=== PATIENT | male | born 1990 | race Caucasian/White ===

== ENCOUNTER 2020-11-28 08:42 | Inpatient (IN) ==
[2020-11-28] MEDS ORDERED: SODIUM CHLORIDE 0.9% 1000ML 1,000 ML IV STA (09:12)
[2020-11-28] MEDS ORDERED: ONDANSETRON INJ 2 MG/ML 2 ML VIAL IV STA (09:12)
[2020-11-28] MEDS: MoRPHine SULFATE 4 MG/ML 1 ML CARP\\VIAL IV PRN ×4 (09:21→12:19)
[2020-11-28 09:22] LABS: Basophils # (auto) 0.02 K/uL (0-0.2); Basophils % (auto) 0.2 %; Eosinophils # (auto) 0.13 K/uL (0-0.5); Hematocrit (blood only) 42.8 % (42-52); Hemoglobin 14.7 g/dL (14.0-18.0); Immature Granulocytes # (auto) 0.02 K/uL (0.00-0.02); Immature Granulocytes % (auto) 0.2 %; Lymphocytes # (auto) 1.66 K/uL (1.2-3.4); Lymphocytes % (auto) 13.1 %; Mean Corpuscular Hemoglobin 28.9 pg (25-34); Mean Corpuscular Hgb Conc 34.3 g/dL (32-36); Mean Corpuscular Volume 84.3 fL (80-100); Mean Platelet Volume 8.4 fL (7.4-10.4); Monocytes # (auto) 1.14 K/uL (0.11-0.59); Neutrophils # (auto) 9.67 K/uL (1.4-6.5); Neutrophils % (auto) 76.5 %; Platelet Count 245 K/uL (130-400); RDW Coefficient of Variation 12.4 % (11.5-14.5); RDW Standard Deviation 38.5 fL (36.4-46.3); Red Blood Count 5.08 M/uL (4.7-6.1); White Blood Count 12.64 K/uL (4.8-10.8)
[2020-11-28] MEDS ORDERED: OPTIRAY 320 125ml IV ONE (09:37)
[2020-11-28 09:39] LABS: Alanine Aminotransferase 27 U/L (12-78); Albumin Level 3.8 gm/dl (3.4-5.0); Aspartate Aminotransferase 8 U/L (15-37); BUN Creatinine Ratio 14.3 (10-20); Blood Urea Nitrogen 16 mg/dl (7-18); Calcium 9.6 mg/dl (8.5-10.1); Carbon Dioxide 33 mmol/L (21-32); Chloride 100 mmol/L (98-107); Creatinine Clr Calc Pharmacy 104.9 ml/min; Est GFR (Non-African American) 90.6; Glucose 111 mg/dl (70-99); Lipase 140 U/L (73-393); Potassium 4.6 mmol/L (3.5-5.1); Sodium 135 mmol/L (136-145)
[2020-11-28 09:41] LABS: D Dimer 2400 ug/L FEU (0-500); INR 0.9 (0.9-1.1); Partial Thromboplastin Time 26.4 Seconds (21.0-31.0); Prothrombin Time 9.6 Seconds (9.0-12.0)
[2020-11-28 09:44] LABS: Albumin Globulin Ratio 0.9 (0.9-2); Alkaline Phosphatase 53 U/L (45-117); Bilirubin,Total 0.3 mg/dl (0.2-1); Total Protein 7.8 gm/dl (6.4-8.2); Troponin I < 0.015 ng/ml (0-0.045)
--- NOTE | 2020-11-28 09:59 | Emergency Department Note ---
Impression & Plan Pulmonary embolism, DVT (deep venous thrombosis), Chest pain ED Provider Note NAME: FRANKO RUIZ AGE: 30 SEX: M : 1990 ARRIVES VIA: Walk-In INFORMANT: Patient, ED PROVIDER(S): Russel Weber DO CHIEF COMPLAINT: Chest pain HPI: The patient is a 30-year-old male who presented to the emergency department for an evaluation of left-sided chest pain. The patient describes pain in his left upper quadrant of his abdomen that goes into his chest and into his left shoulder. He denies any recent trauma. He has had no nausea or vomiting. He states the pain is worsened with taking a deep breath and he feels as though he is limited with his breathing because of this. He denies having any history of venous thromboembolic disease. He does not take any blood thinners. He has not been seen by provider for the symptoms. He states this pain began only over the last 1 to 2 days. He states the pain is moderate to severe. He states the pain is mildly improved with remaining still and not moving. He has had no diarrhea or hematemesis. ROS: See above HPI for pertinent positives & negatives. A total of 10 systems reviewed and were otherwise negative. PAST MEDICAL HISTORY: See Below PAST SURGICAL HISTORY: See Below FAMILY HISTORY: See Below SOCIAL HISTORY: See Below HOME MEDICATIONS: See Below ALLERGIES: See Below VITALS: See Below PHYSICAL EXAMINATION: GENERAL: The patient is awake and alert. The patient is very anxious appearing and appears to be in significant pain. EYES: The conjunctivae are clear. The pupils are round and reactive. EARS, NOSE, MOUTH AND THROAT: The nose is without any evidence of any deformity. Mucous membranes are moist. Tongue is midline. NECK: The neck is nontender and supple. RESPIRATORY: Normal respiratory effort is noted there is no evidence of wheezing rhonchi or rales CARDIOVASCULAR: Splinting respirations were noted. There were rales at both bases. GASTROINTESTINAL: The abdomen is soft and nondistended. There is significant left upper quadrant tenderness to palpation. MUSCULOSKELETAL/EXTREMITIES: There is no evidence of gross deformity full range of motion is noted in the hips and shoulders. SKIN: There is no obvious evidence of any rash. There are no petechiae, pallor or cyanosis noted. NEUROLOGIC: Patient is awake alert and oriented x3. MEDICAL DECISION MAKING: The patient is a 30-year-old male who presented to the emergency department for an evaluation of left-sided chest pain. The patient had left-sided chest pain and left upper quadrant abdominal pain. His abdominal pain was very severe and was reproducible on physical exam. His initial presentation appeared to be consistent with intra-abdominal pathology however given his elevated D-dimer radiographs of the chest were also obtained. I discussed the patient's laboratory and radiographic studies with him. He was treated with IV fluids and IV pain medication in the emergency department. He was also started on IV hep mainor when radiographic studies revealed signs of pulmonary embolism with DVT. He was found to have some pleural effusion on the left which may explain the patient's pain on that side and may be consistent with a pulmonary infarct. I discussed the patient's condition with the on-call [facility] hospitalist group. They have agreed to evaluate the patient in the emergency department for further management and disposition. Once I was explaining the patient's diagnosis with him he does state that his father also has a history of venous thromboembolic disease but does not have a definite diagnosis for why. Triage Nursing notes reviewed. Prior medical records reviewed Vital Signs: reviewed and remarkable for elevated blood pressure. Differential diagnosis: Cardiac ischemia, aortic dissection, pulmonary embolism, pneumothorax, pneumonia, pericarditis, myocarditis, esophageal rupture, GERD, cholecystitis, pancreatitis, musculoskeletal, as well as other pathologies. ER treatment provided: See below Diagnostics interpreted by me: ECG: EKG was obtained in the emergency department. My interpretation is normal sinus rhythm at 85 bpm. There is no ectopy. There was no acute ST segment abnormalities noted. This was compared to a tracing from May 112013. No significant changes were noted. Cardiac Monitoring: An order was placed for continuous cardiac monitoring. The monitor shows a rate of 89 bpm with sinus rhythm. Laboratory studies: As stated above and show below. Imaging studies: See below Consultation(s): I discussed this case with Dr. Leyva who [facility] ED COURSE: Procedures: none PDMP:reviewed and no issues Critical Care: I have personally spent greater than 55 minutes of critical care time in the direct management of this patient. This includes bedside care, interpretation of diagnostic studies, and testing, discussion with consultants, patient, and family members, and other required patient management activities. This 55 minutes is in excess of all separately billable procedures. Past Med/Surg History Medical History (Updated 11/28/20 @ 11:56 by Russel Weber DO) No significant medical problems Surgical History No history of previous surgery Family History (Updated 11/28/20 @ 11:28 by DREA Chou) Father Clotting disorder Unknown work up, father with multiple PE and DVT on chronic anticoagulation - required a IVC filter at one time, but has since been removed Coronary heart disease Hypertension Pulmonary embolism Deep vein thrombosis Mother Hypertension Social History Smoking Status: Never smoker Tobacco Type: Cigarettes Hx Alcohol Use: No Hx Substance Use: No Preferred Language: Jordanian Communication Ability: Effective Head Transfer Clerk Required: No Beliefs That Will Affect Care: None Current Living Situation: Alone Other Information That Helps Us Care for You: No Feels Safe at Home: Yes Allergies Allergies Allergy/AdvReac Type Severity Reaction Status Date / Time No Known Allergies Allergy Unknown Verified 04/05/19 21:52 Home Meds Home Medications Medication Instructions Recorded Confirmed acetaminophen [Tylenol Extra 1,000 mg PO BID PRN 04/05/19 04/05/19 Strength] ibuprofen 800 mg PO BID PRN 04/05/19 04/05/19 Results & Data (ED) Vital Signs Vital Signs - 24 hr 11/28/20 08:47 11/28/20 09:10 11/28/20 09:12 Temperature 36.8 C Temperature Source Temporal Artery Scan Pulse Rate 92 H Pulse Rate [Left Apical] 85 Pulse Rhythm Pulse Rhythm [Left Apical] Regular Pulse Strength [Left Apical] Normal Respiratory Rate 24 28 H Respiratory Effort / Characteristics Spontaneous Non-Labored Spontaneous Labored Respiratory Depth Shallow Normal Respiratory Pattern Regular Blood Pressure 121/88 Blood Pressure [Right Arm] 160/84 H Blood Pressure Mean 99 Blood Pressure Mean [Right Arm] 109 Blood Pressure Position Sitting Blood Pressure Position [Right Arm] Lying Pulse Oximetry 99 100 Oxygen Delivery Method Room Air Room Air Sepsis Recent Fever Within 48 Hours No Sepsis New/Unexplained Change in Mental Status N/A Sepsis Action Taken by Nursing No Action Required 11/28/20 09:19 11/28/20 10:09 Temperature Temperature Source Pulse Rate 86 Pulse Rate [Left Apical] 95 H Pulse Rhythm Regular Pulse Rhythm [Left Apical] Regular Pulse Strength [Left Apical] Normal Respiratory Rate 27 H 28 H Respiratory Effort / Characteristics Non-Labored Spontaneous Respiratory Depth Normal Respiratory Pattern Regular Blood Pressure Blood Pressure [Right Arm] 155/95 H Blood Pressure Mean Blood Pressure Mean [Right Arm] 115 Blood Pressure Position Blood Pressure Position [Right Arm] Lying Pulse Oximetry 100 99 Oxygen Delivery Method Room Air Room Air Sepsis Recent Fever Within 48 Hours Sepsis New/Unexplained Change in Mental Status Sepsis Action Taken by Group Home Medications Current Medication List: was personally reviewed by me Laboratory Data Attestation: I reviewed the patient's lab results. Result diagrams: 11/28/20 09:10 11/28/20 09:10 Lab Results 11/28/20 11/28/20 11/28/20 Range/Units 09:10 09:10 09:10 WBC 12.64 H (4.8-10.8) K/uL RBC 5.08 (4.7-6.1) M/uL Hgb 14.7 (14.0-18.0) g/dL Hct 42.8 (42-52) % MCV 84.3 (80-100) fL MCH 28.9 (25-34) pg MCHC 34.3 (32-36) g/dL RDW Std Deviation 38.5 (36.4-46.3) fL RDW Coeff of Anna 12.4 (11.5-14.5) % Plt Count 245 (130-400) K/uL MPV 8.4 (7.4-10.4) fL Immature Gran % (Auto) 0.2 % Neut % (Auto) 76.5 % Lymph % (Auto) 13.1 % [place] % (Auto) 9.0 % Eos % (Auto) 1.0 % Baso % (Auto) 0.2 % Neut # (Auto) 9.67 H (1.4-6.5) K/uL Lymph # (Auto) 1.66 (1.2-3.4) K/uL [place] # (Auto) 1.14 H (0.11-0.59) K/uL Eos # (Auto) 0.13 (0-0.5) K/uL Baso # (Auto) 0.02 (0-0.2) K/uL Immature Gran # (Auto) 0.02 (0.00-0.02) K/uL ESR (0-14) mm/hr PT (9.0-12.0) Seconds INR (0.9-1.1) APTT (21.0-31.0) Seconds PTT Ratio Fibrinogen Cancelled D-Dimer 2400 H* (0-500) ug/L FEU Sodium 135 L (136-145) mmol/L Potassium 4.6 (3.5-5.1) mmol/L Chloride 100 (98-107) mmol/L Carbon Dioxide 33 H (21-32) mmol/L Anion Gap 2.0 L (3-11) BUN 16 (7-18) mg/dl Creatinine 1.09 (0.6-1.4) mg/dl Est Cr Clr Drug Dosing 104.9 ml/min Est GFR ( Amer) 105.0 Est GFR (Non-Af Amer) 90.6 BUN/Creatinine Ratio 14.3 (10-20) Glucose 111 H (70-99) mg/dl Calcium 9.6 (8.5-10.1) mg/dl Total Bilirubin 0.3 (0.2-1) mg/dl AST 8 L (15-37) U/L ALT 27 (12-78) U/L Alkaline Phosphatase 53 (45-117) U/L Troponin I < 0.015 (0-0.045) ng/ml C-Reactive Protein (0-0.29) mg/dl NT-Pro-B Natriuret Pep (0-450) pg/ml Total Protein 7.8 (6.4-8.2) gm/dl Albumin 3.8 (3.4-5.0) gm/dl Globulin 4.0 (2.5-4.0) gm/dl Albumin/Globulin Ratio 0.9 (0.9-2) Lipase 140 (73-393) U/L Procalcitonin (0-0.5) ng/ml COVID-19 Eval Order Monoscreen (Negative) SARS-CoV-2, RNA, NAAT (NEGATIVE) 11/28/20 11/28/20 11/28/20 Range/Units 09:10 09:10 09:36 WBC (4.8-10.8) K/uL RBC (4.7-6.1) M/uL Hgb (14.0-18.0) g/dL Hct (42-52) % MCV (80-100) fL MCH (25-34) pg MCHC (32-36) g/dL RDW Std Deviation (36.4-46.3) fL RDW Coeff of Anna (11.5-14.5) % Plt Count (130-400) K/uL MPV (7.4-10.4) fL Immature Gran % (Auto) % Neut % (Auto) % Lymph % (Auto) % [place] % (Auto) % Eos % (Auto) % Baso % (Auto) % Neut # (Auto) (1.4-6.5) K/uL Lymph # (Auto) (1.2-3.4) K/uL [place] # (Auto) (0.11-0.59) K/uL Eos # (Auto) (0-0.5) K/uL Baso # (Auto) (0-0.2) K/uL Immature Gran # (Auto) (0.00-0.02) K/uL ESR 21 H (0-14) mm/hr PT 9.6 (9.0-12.0) Seconds INR 0.9 (0.9-1.1) APTT 26.4 (21.0-31.0) Seconds PTT Ratio 1.0 Fibrinogen 431 H D-Dimer (0-500) ug/L FEU Sodium (136-145) mmol/L Potassium (3.5-5.1) mmol/L Chloride (98-107) mmol/L Carbon Dioxide (21-32) mmol/L Anion Gap (3-11) BUN (7-18) mg/dl Creatinine (0.6-1.4) mg/dl Est Cr Clr Drug Dosing ml/min Est GFR ( Amer) Est GFR (Non-Af Amer) BUN/Creatinine Ratio (10-20) Glucose (70-99) mg/dl Calcium (8.5-10.1) mg/dl Total Bilirubin (0.2-1) mg/dl AST (15-37) U/L ALT (12-78) U/L Alkaline Phosphatase (45-117) U/L Troponin I (0-0.045) ng/ml C-Reactive Protein (0-0.29) mg/dl NT-Pro-B Natriuret Pep (0-450) pg/ml Total Protein (6.4-8.2) gm/dl Albumin (3.4-5.0) gm/dl Globulin (2.5-4.0) gm/dl Albumin/Globulin Ratio (0.9-2) Lipase (73-393) U/L Procalcitonin (0-0.5) ng/ml COVID-19 Eval Order Monoscreen Negative (Negative) SARS-CoV-2, RNA, NAAT (NEGATIVE) 11/28/20 11/28/20 11/28/20 Range/Units 09:36 10:00 10:00 WBC (4.8-10.8) K/uL RBC (4.7-6.1) M/uL Hgb (14.0-18.0) g/dL Hct (42-52) % MCV (80-100) fL MCH (25-34) pg MCHC (32-36) g/dL RDW Std Deviation (36.4-46.3) fL RDW Coeff of Anna (11.5-14.5) % Plt Count (130-400) K/uL MPV (7.4-10.4) fL Immature Gran % (Auto) % Neut % (Auto) % Lymph % (Auto) % [place] % (Auto) % Eos % (Auto) % Baso % (Auto) % Neut # (Auto) (1.4-6.5) K/uL Lymph # (Auto) (1.2-3.4) K/uL [place] # (Auto) (0.11-0.59) K/uL Eos # (Auto) (0-0.5) K/uL Baso # (Auto) (0-0.2) K/uL Immature Gran # (Auto) (0.00-0.02) K/uL ESR (0-14) mm/hr PT (9.0-12.0) Seconds INR (0.9-1.1) APTT (21.0-31.0) Seconds PTT Ratio Fibrinogen D-Dimer (0-500) ug/L FEU Sodium (136-145) mmol/L Potassium (3.5-5.1) mmol/L Chloride (98-107) mmol/L Carbon Dioxide (21-32) mmol/L Anion Gap (3-11) BUN (7-18) mg/dl Creatinine (0.6-1.4) mg/dl Est Cr Clr Drug Dosing ml/min Est GFR ( Amer) Est GFR (Non-Af Amer) BUN/Creatinine Ratio (10-20) Glucose (70-99) mg/dl Calcium (8.5-10.1) mg/dl Total Bilirubin (0.2-1) mg/dl AST (15-37) U/L ALT (12-78) U/L Alkaline Phosphatase (45-117) U/L Troponin I (0-0.045) ng/ml C-Reactive Protein (0-0.29) mg/dl NT-Pro-B Natriuret Pep (0-450) pg/ml Total Protein (6.4-8.2) gm/dl Albumin (3.4-5.0) gm/dl Globulin (2.5-4.0) gm/dl Albumin/Globulin Ratio (0.9-2) Lipase (73-393) U/L Procalcitonin < 0.05 (0-0.5) ng/ml COVID-19 Eval [facility] (Negative) SARS-CoV-2, RNA, NAAT NEGATIVE (NEGATIVE) 11/28/20 Range/Units 10:40 WBC (4.8-10.8) K/uL RBC (4.7-6.1) M/uL Hgb (14.0-18.0) g/dL Hct (42-52) % MCV (80-100) fL MCH (25-34) pg MCHC (32-36) g/dL RDW Std Deviation (36.4-46.3) fL RDW Coeff of Anna (11.5-14.5) % Plt Count (130-400) K/uL MPV (7.4-10.4) fL Immature Gran % (Auto) % Neut % (Auto) % Lymph % (Auto) % [place] % (Auto) % Eos % (Auto) % Baso % (Auto) % Neut # (Auto) (1.4-6.5) K/uL Lymph # (Auto) (1.2-3.4) K/uL [place] # (Auto) (0.11-0.59) K/uL Eos # (Auto) (0-0.5) K/uL Baso # (Auto) (0-0.2) K/uL Immature Gran # (Auto) (0.00-0.02) K/uL ESR (0-14) mm/hr PT (9.0-12.0) Seconds INR (0.9-1.1) APTT (21.0-31.0) Seconds PTT Ratio Fibrinogen D-Dimer (0-500) ug/L FEU Sodium (136-145) mmol/L Potassium (3.5-5.1) mmol/L Chloride (98-107) mmol/L Carbon Dioxide (21-32) mmol/L Anion Gap (3-11) BUN (7-18) mg/dl Creatinine (0.6-1.4) mg/dl Est Cr Clr Drug Dosing ml/min Est GFR ( Amer) Est GFR (Non-Af Amer) BUN/Creatinine Ratio (10-20) Glucose (70-99) mg/dl Calcium (8.5-10.1) mg/dl Total Bilirubin (0.2-1) mg/dl AST (15-37) U/L ALT (12-78) U/L Alkaline Phosphatase (45-117) U/L Troponin I (0-0.045) ng/ml C-Reactive Protein 2.06 H (0-0.29) mg/dl NT-Pro-B Natriuret Pep 6 (0-450) pg/ml Total Protein (6.4-8.2) gm/dl Albumin (3.4-5.0) gm/dl Globulin (2.5-4.0) gm/dl Albumin/Globulin Ratio (0.9-2) Lipase (73-393) U/L Procalcitonin (0-0.5) ng/ml COVID-19 Eval Order Monoscreen (Negative) SARS-CoV-2, RNA, NAAT (NEGATIVE) Administered Medications Heparin Sodium/Dextrose (Heparin Sodium/Dextrose) 25,000 units in 500 mls @ 27 mls/hr IV .[id number] [facility]; Protocol Stop: 12/28/20 10:14 Last Admin: 11/28/20 10:51 Dose: 27 units/hr, 0.5 mls/hr Documented by: [id number] Cosigned by: [id number] Morphine Sulfate (Morphine Sulfate 4 Mg/Ml 1 Ml Carp\Vial) 4 mg IV Q15M PRN PRN Reason: Pain Stop: 12/12/20 09:11 Last Admin: 11/28/20 09:37 Dose: 4 mg Documented by: [id number] Admin: 11/28/20 09:21 Dose: 4 mg Documented by: [id number] Discontinued Medications Heparin Sodium (Porcine) (Heparin Sod (Porcine) 1000 Unit/Ml 10 Ml Vial) Confirm Administered Dose 10,000 units .ROUTE .STK-MED ONE Stop: 11/28/20 10:27 Last Admin: 11/28/20 10:52 Dose: 6,000 units Documented by: [id number] Cosigned by: [id number] Heparin Sodium/Dextrose (Heparin Iv Standard With Bolus) 1 ea IV NOW STA; Protocol Stop: 11/28/20 10:13 Last Admin: 11/28/20 11:44 Dose: Not Given Documented by: [id number] Hydromorphone HCl (Hydromorphone Inj 1 Mg/Ml Syringe) 1 mg IV Q30M PRN PRN Reason: Pain Stop: 12/12/20 10:11 Last Admin: 11/28/20 10:54 Dose: 1 mg Documented by: [id number] Admin: 11/28/20 10:16 Dose: 1 mg Documented by: [id number] Sodium Chloride (Nss 1000ml) 1,000 mls @ 999 mls/hr IV .Q1H1M STA Stop: 11/28/20 10:12 Last Infusion: 11/28/20 10:30 Dose: 0 mls/hr Documented by: [id number] Admin: 11/28/20 09:21 Dose: 999 mls/hr Documented by: [id number] Ioversol (Optiray 320 125ml) 120 ml IV ONCE ONE Stop: 11/28/20 09:38 Last Admin: 11/28/20 09:37 Dose: 120 ml Documented by: [id number] Ondansetron HCl (Ondansetron Inj 2 Mg/Ml 2 Ml Vial) 4 mg IV NOW STA Stop: 11/28/20 09:13 Last Admin: 11/28/20 09:21 Dose: 4 mg Documented by: [id number] Imaging Data Radiologist's Impression: Patient: FRANKO RUIZ Admit Date: 11/28/20 MR#: [id number] Address1: [address] [place] [address] Acct ID:[id number] Address2: Date: 1990 [facility] Zip: [place] [address] Age: 30 Location: ED Sex: M Room/Bed: Att Phy: Diagnosis: SOB Bettye Phy: PCP,NO Service Date: 11/28/20 [facility] Phy: Interpreting Phy: Reuben Duckworth MD Admit Phy: Ordering Phy: Russel Weber DO cc: ~ CT ANGIOGRAM OF THE CHEST; CT SCAN OF THE ABDOMEN AND PELVIS WITH IV CONTRAST CLINICAL HISTORY: Dyspnea. Atypical chest pain. Generalized abdominal pain. COMPARISON STUDY: Chest CT dated 04/05/2019. Abdominal CT dated 04/05/2019. TECHNIQUE: Following the IV administration of 120 of Optiray 320, CT angiogram of the chest is performed from the upper abdomen to the thoracic inlet utilizing the pulmonary embolus protocol. Images are reviewed in the axial, sagittal, coronal planes. 3-D MIPS images are created and assessed. Subsequently, CT scan of the abdomen and pelvis was performed from the lung bases to the proximal femora. Images are reviewed in the axial, sagittal, and coronal planes. IV contrast was administered without complication. A dose lowering technique was utilized adhering to the principles of ALARA. The examination is degraded by motion artifact. CT DOSE: 770.43 mGy.cm FINDINGS: CHEST: Thyroid: Imaged portions of the thyroid gland are normal in size and attenuation. Thoracic aorta: The thoracic aorta is normal in caliber and demonstrates standard 3-vessel arch anatomy. No dissection is seen. Pulmonary vasculature: The pulmonary trunk is normal in caliber. There are segmental and subsegmental pulmonary emboli within branches of the right upper, right middle, right lower, and left lower lobe pulmonary arteries. Heart: The heart is normal in size and configuration, and without pericardial effusion. Lungs and pleural spaces: There is a small left pleural effusion with left basilar consolidation. The right lung is clear. The trachea and central airways are patent. Mediastinum: There is no mediastinal lymphadenopathy. Liz: Clear. Axillae: There is no axillary lymphadenopathy. Bony thorax: No lytic or blastic lesions are identified. ABDOMEN AND PELVIS: Liver: The contrast-enhanced liver is normal in size, contour, and attenuation. There is no intrahepatic biliary ductal dilatation. The hepatic veins and portal veins are patent. Gallbladder: Unremarkable. Spleen: Normal in size and attenuation. Pancreas: Unremarkable. Adrenal glands: Unremarkable. Kidneys: The contrast enhanced kidneys are normal in size and without hydronephrosis. The kidneys enhance symmetrically. Abdominal vasculature: The abdominal aorta is normal in course and caliber. Deep venous thrombosis is identified in the right common femoral vein on image #511. There is no evidence of pelvic DVT. Stomach and bowel: There is a small hiatal hernia. No bowel obstruction is seen. Moderate constipation is observed The appendix is well-visualized and normal. Peritoneum: There is no intraperitoneal free air or abdominal ascites. There is a small fat-containing umbilical hernia. Lymphadenopathy: None. Pelvic viscera: The bladder is distended but otherwise normal in appearance. The prostate and seminal vesicles are normal as imaged. Trace free fluid is seen in the pelvis. Skeletal structures: No lytic or blastic lesions are seen. IMPRESSION: 1. Bilateral segmental and subsegmental pulmonary emboli as detailed above. 2. There is a small left pleural effusion with left basilar consolidation. This likely represents atelectasis and clinical correlation will be required. 3. Moderate constipation. 4. Trace free fluid in the pelvis is nonspecific and likely reactive. 5. Deep venous thrombosis is identified in the right common femoral vein. 6. Additional findings as above. ACT 112: Negative or not required by law. Electronically signed by: Reuben Duckworth M.D. 11/28/2020 10:06 AM Dictated: 11/28/20954 Transcribed: 11/28/20954 Discharge Plan Visit Data Chief Complaint: Shortness of Breath/Dyspnea Stated Complaint: SOB ED Provider: Russel Weber Discharge Problem: Pulmonary embolism, DVT (deep venous thrombosis), Chest pain Patient Disposition: Admitted As Inpatient Condition: Good Discharge Instructions Interventions: ED Discharge Assessment Last Done: 11/28/20 11:22 Discharge Problem: Pulmonary embolism Qualifiers: Pulmonary embolism type: unspecified Chronicity: acute Acute cor pulmonale presence: unspecified Qualified Code(s): I26.99 - Other pulmonary embolism without acute cor pulmonale DVT (deep venous thrombosis) Qualifiers: DVT location: lower extremity Affected thrombotic vein of extremity: femoral Chronicity: acute Laterality: right Qualified Code(s): I82.411 - Acute embolism and thrombosis of right femoral vein Chest pain Qualifiers: Chest pain type: unspecified Qualified Code(s): R07.9 - Chest pain, unspecified
--- NOTE | 2020-11-28 10:07 | CT Scan Report ---
CT ANGIOGRAM OF THE CHEST; CT SCAN OF THE ABDOMEN AND PELVIS WITH IV CONTRAST CLINICAL HISTORY: Dyspnea. Atypical chest pain. Generalized abdominal pain. COMPARISON STUDY: Chest CT dated 04/05/2019. Abdominal CT dated 04/05/2019. TECHNIQUE: Following the IV administration of 120 of Optiray 320, CT angiogram of the chest is perfor med from the upper abdomen to the thoracic inlet utilizing the pulmonary embolus protocol. Images are reviewed in the axial, sagittal, coronal planes. 3-D MIPS images are created and assessed. Subsequen tly, CT scan of the abdomen and pelvis was performed from the lung bases to the proximal femora. Imag es are reviewed in the axial, sagittal, and coronal planes. IV contrast was administered without comp lication. A dose lowering technique was utilized adhering to the principles of ALARA. The examination is degraded by motion artifact. CT DOSE: 770.43 mGy.cm FINDINGS: CHEST: Thyroid: Imaged portions of the thyroid gland are normal in size and attenuation. Thoracic aorta: The thoracic aorta is normal in caliber and demonstrates standard 3-vessel arch anato my. No dissection is seen. Pulmonary vasculature: The pulmonary trunk is normal in caliber. There are segmental and subsegmental pulmonary emboli within branches of the right upper, right middle, right lower, and left lower lobe pulmonary arteries. Heart: The heart is normal in size and configuration, and without pericardial effusion. Lungs and pleural spaces: There is a small left pleural effusion with left basilar consolidation. The right lung is clear. The trachea and central airways are patent. Mediastinum: There is no mediastinal lymphadenopathy. Liz: Clear. Axillae: There is no axillary lymphadenopathy. Bony thorax: No lytic or blastic lesions are identified. ABDOMEN AND PELVIS: Liver: The contrast-enhanced liver is normal in size, contour, and attenuation. There is no intrahepa tic biliary ductal dilatation. The hepatic veins and portal veins are patent. Gallbladder: Unremarkable. Spleen: Normal in size and attenuation. Pancreas: Unremarkable. Adrenal glands: Unremarkable. Kidneys: The contrast enhanced kidneys are normal in size and without hydronephrosis. The kidneys enh ance symmetrically. Abdominal vasculature: The abdominal aorta is normal in course and caliber. Deep venous thrombosis is identified in the right common femoral vein on image #511. There is no evidence of pelvic DVT. Stomach and bowel: There is a small hiatal hernia. No bowel obstruction is seen. Moderate constipatio n is observed The appendix is well-visualized and normal. Peritoneum: There is no intraperitoneal free air or abdominal ascites. There is a small fat-containin g umbilical hernia. Lymphadenopathy: None. Pelvic viscera: The bladder is distended but otherwise normal in appearance. The prostate and seminal vesicles are normal as imaged. Trace free fluid is seen in the pelvis. Skeletal structures: No lytic or blastic lesions are seen. IMPRESSION: 1. Bilateral segmental and subsegmental pulmonary emboli as detailed above. 2. There is a small left pleural effusion with left basilar consolidation. This likely represents ate lectasis and clinical correlation will be required. 3. Moderate constipation. 4. Trace free fluid in the pelvis is nonspecific and likely reactive. 5. Deep venous thrombosis is identified in the right common femoral vein. 6. Additional findings as above. ACT 112: Negative or not required by law. Electronically signed by: Reuben Duckworth M.D. 11/28/2020 10:06 AM
[2020-11-28] MEDS ORDERED: Heparin IV Adult Wt-Based Standard WITH Bolus Protocol IV STA (10:12)
[2020-11-28] MEDS: HYDROmorphone INJ 1 MG/ML SYRINGE IV PRN ×2 (10:16→10:54)
[2020-11-28] MEDS ORDERED: HEPARIN SOD (PORCINE) 1000 UNIT/ML ONE (10:26)
[2020-11-28] MEDS: HEPARIN SODIUM/DEXTROSE 25,000 UNITS/500 ML BAG IV SCH (10:51)
[2020-11-28] MEDS ORDERED: ONDANSETRON INJ 2 MG/ML 2 ML VIAL IV PRN (10:52)
[2020-11-28 11:18] LABS: Fibrinogen 431 mg/dl (184-400)
--- NOTE | 2020-11-28 11:20 | History & Physical Report ---
Date of Service November 28, 2020 Assessment & Plan (1) Pulmonary embolism: Bilateral segmental and subsegmental PE - Acute PE with PESI score 1 - no hemodynamic compromise, BNP, normal, no evidence of right heart strain on CT, and troponin normal - Heparin with bolus to therapeutic anticoagulation - Discussion with patient regarding his anticoagulation options. Case reviewed with Dr. Suárez regarding options while awaiting hypercoagulability work up and appreciate her review - Patient would like to discuss with his parents at this time before deciding. - Coumadin vs DOAC would be appropriate. If antiphospholipid or Lupus anticoagulant would lead more towards Coumadin as DOAC is contraindicated with those conditions -Dr. Suárez would like patient to follow-up with her in the anticoagulation clinic after discharge to review hypercoagulable work-up and discuss future richi g-term anticoagulation plans (2) Pleural effusion: Small left pleural effusion - likely with atelectasis and inflammation - no acute interventions at this time - follow (3) Pain: Patient's pain likely related to pulmonary infarction - Morphine 2 mg q2 hours- IMPORT DISPATCHER an option if needed - Tylenol - Toradol IV 15 mg q6prn - Lidoderm patch - Acute pain service consult if unable to control pain for nerve block evaluation (4) DVT (deep venous thrombosis): Right femoral DVT that does not extend to the pelvis - Bilateral lower extremity Doppler ordered - Devon pacheco for VTE and therapeutic heparin History of Present Illness Chief Complaint: Chest pain Primary Care Provider: NO PCP 30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 The patient comes in today for worsening of left rib and side pain and making it swan rder to breathe. 5 days ago the patient experienced hot flashes of warmth all over, associated with some light headedness and dizziness so he went to lay down, the pain on his left chest started a couple of days ago, but has gotten significantly worse today. The patient denies any leg pain or trauma or swelling of his legs and has not had this occur before. In the evaluation in the ER the patient had a CTA of the chest abdomen and pelvis performed where it was noted he has segmental and subsegmental pulmonary embolism in right upper, right middle, right lower, and left lower lobe pulmonary arteries. The left pulmonary embolism is associated with small left pleural effusion with basilar consolidation. He is also noted to have a right common femoral vein thrombosis which does not appear to extend in to the pelvis. The patient pain remains on the left side of his chest and left rib cage border, with significant splinting and guarding. The patient does have a significant family history of blood clots in his father who has had multiple pulmonary embolisms including saddle PE requiring mechanical ventilation with DVT requiring a filter at one time, that has since been removed. His father is on retirement anticoagulation per report and per Tonio his father's lab work was never shown to identify the reason. Tonio has one child son at home. Allergies Allergy/AdvReac Type Severity Reaction Status Date / Time No Known Allergies Allergy Unknown Verified 04/05/19 21:52 Home Medications Medication Instructions Recorded Confirmed Type acetaminophen [Tylenol Extra 1,000 mg PO BID PRN 04/05/19 04/05/19 History Strength] ibuprofen 800 mg PO BID PRN 04/05/19 04/05/19 History Past Med/Surg History Medical History (Updated 11/28/20 @ 11:56 by Russel Weber DO) No significant medical problems Surgical History No history of previous surgery Family History (Updated 11/28/20 @ 11:28 by DREA Chou) Father Clotting disorder Unknown work up, father with multiple PE and DVT on chronic anticoagu lation - required a IVC filter at one time, but has since been removed Coronary heart disease Hypertension Pulmonary embolism Deep vein thrombosis Mother Hypertension Social History Smoking Status: Never smoker Tobacco Type: Cigarettes Hx Alcohol Use: No Hx Substance Use: No Preferred Language: Estonian Communication Ability: Effective 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 College Or University Required: No Beliefs That Will Affect Care: None Current Living Situation: Alone Other Information That Helps Us Care for You: No Feels Safe at Home: Yes Review of Systems Review of Systems: REVIEW OF SYSTEMS: Constitutional: No fever, sweats or chills Eyes: No diplopia, no worsening or blurred vision ENT: normal hearing, no trouble swallowing Respiratory: (+) cough, dyspnea on exertion, left chest wall pain, negative sputum, dyspnea at rest Cardiovascular: No substernal chest pain, tightness or palpitations Abdomen: (+) LUQ pain, (-) nausea, vomiting, diarrhea or constipation Musculoskeletal: No joint pain, calf pain, swelling Neurologic: No weakness, numbness/tingling, or balance problems Psychiatric: No anxiety or depression Skin: No rash or itch Physical Exam Physical Exam: PHYSICAL EXAM: General: awake, alert, no apparent distress Head: Normocephalic, atraumatic ENT: PERRL, EOMI, no pharyngeal exudate, mucous membranes moist Neuro: AAO x 3, speech clear and appropriate, strength intact bilaterally 5/5, sensation intact and equal all extremities and dermatomes, no pronator drift Chest: equal rise and fall of the chest, no accessory muscle use, splinting of the left chest, decreased in bases secondary to hypoventilation, on room air, Cardiac: Regular rate and rhythm, telemetry reviewed, skin warm dry, cap refill <3 seconds, peripheral pulses +2 no JVD, no murmur, no edema GI: NABS x 4 quadrants, soft, nontender to palpation, no rebound, guarding secondary to LUQ rib pain, but not tender in the abdomen : Spontaneously voiding, no pain, no CVA tenderness, Extremities: Normal inspection, no peripheral edema or erythema, calfs nontender to palpation Psych: Normal mood and affect Skin: no rash or erythema Results & Data Results & Data ([facility]) Vital Signs (Past 12 Hours) Vital Signs Temp Pulse Pulse Resp BP BP Pulse Ox 11/28/20 11:00 82 18 151/96 H 95 11/28/20 10:09 95 H 28 H 155/95 H 99 11/28/20 09:19 86 27 H 100 11/28/20 09:10 85 28 H 160/84 H 100 11/28/20 08:47 36.8 C 92 H 24 121/88 99 Laboratory Results Abnormal lab results 11/28/20 11/28/20 11/28/20 Range/Units 09:10 09:10 09:10 WBC 12.64 H (4.8-10.8) K/uL Neut # (Auto) 9.67 H (1.4-6.5) K/uL [place] # (Auto) 1.14 H (0.11-0.59) K/uL ESR (0-14) mm/hr Fibrinogen (184-400) mg/dl D-Dimer 2400 H* (0-500) ug/L FEU Sodium 135 L (136-145) mmol/L Carbon Dioxide 33 H (21-32) mmol/L Anion Gap 2.0 L (3-11) Glucose 111 H (70-99) mg/dl AST 8 L (15-37) U/L C-Reactive Protein (0-0.29) mg/dl 11/28/20 11/28/20 11/28/20 Range/Units 09:10 09:36 10:40 WBC (4.8-10.8) K/uL Neut # (Auto) (1.4-6.5) K/uL [place] # (Auto) (0.11-0.59) K/uL ESR 21 H (0-14) mm/hr Fibrinogen 431 H (184-400) mg/dl D-Dimer (0-500) ug/L FEU Sodium (136-145) mmol/L Carbon Dioxide (21-32) mmol/L Anion Gap (3-11) Glucose (70-99) mg/dl AST (15-37) U/L C-Reactive Protein 2.06 H (0-0.29) mg/dl Diagnostic Findings CT ANGIOGRAM OF THE CHEST; CT SCAN OF THE ABDOMEN AND PELVIS WITH IV CONTRAST CLINICAL HISTORY: Dyspnea. Atypical chest pain. Generalized abdominal pain. COMPARISON STUDY: Chest CT dated 04/05/2019. Abdominal CT dated 04/05/2019. TECHNIQUE: Following the IV administration of 120 of Optiray 320, CT angiogram of the chest is performed from the upper abdomen to the thoracic inlet utilizing the pulmonary embolus protocol. Images are reviewed in the axial, sagittal, coronal planes. 3-D MIPS images are created and assessed. Subsequently, CT scan of the abdomen and pelvis was performed from the lung bases to the proximal femora. Images are reviewed in the axial, sagittal, and coronal planes. IV contrast was administered without complication. A dose lowering technique was utilized adhering to the principles of ALARA. The examination is degraded by motion artifact. CT DOSE: 770.43 mGy.cm FINDINGS: CHEST: Thyroid: Imaged portions of the thyroid gland are normal in size and attenuation. Thoracic aorta: The thoracic aorta is normal in caliber and demonstrates standard 3-vessel arch anatomy. No dissection is seen. Pulmonary vasculature: The pulmonary trunk is normal in caliber. There are segmental and subsegmental pulmonary emboli within branches of the right upper, right middle, right lower, and left lower lobe pulmonary arteries. Heart: The heart is normal in size and configuration, and without pericardial effusion. Lungs and pleural spaces: There is a small left pleural effusion with left basilar consolidation. The right lung is clear. The trachea and central airways are patent. Mediastinum: There is no mediastinal lymphadenopathy. Liz: Clear. Axillae: There is no axillary lymphadenopathy. Bony thorax: No lytic or blastic lesions are identified. ABDOMEN AND PELVIS: Liver: The contrast-enhanced liver is normal in size, contour, and attenuation. There is no intrahepatic biliary ductal dilatation. The hepatic veins and portal veins are patent. Gallbladder: Unremarkable. Spleen: Normal in size and attenuation. Pancreas: Unremarkable. Adrenal glands: Unremarkable. Kidneys: The contrast enhanced kidneys are normal in size and without hydronephrosis. The kidneys enhance symmetrically. Abdominal vasculature: The abdominal aorta is normal in course and caliber. Deep venous thrombosis is identified in the right common femoral vein on image #511. There is no evidence of pelvic DVT. Stomach and bowel: There is a small hiatal hernia. No bowel obstruction is seen. Moderate constipation is observed The appendix is well-visualized and normal. Peritoneum: There is no intraperitoneal free air or abdominal ascites. There is a small fat-containing umbilical hernia. Lymphadenopathy: None. Pelvic viscera: The bladder is distended but otherwise normal in appearance. The prostate and seminal vesicles are normal as imaged. Trace free fluid is seen in the pelvis. Skeletal structures: No lytic or blastic lesions are seen. IMPRESSION: 1. Bilateral segmental and subsegmental pulmonary emboli as detailed above. 2. There is a small left pleural effusion with left basilar consolidation. This likely represents atelectasis and clinical correlation will be required. 3. Moderate constipation. 4. Trace free fluid in the pelvis is nonspecific and likely reactive. 5. Deep venous thrombosis is identified in the right common femoral vein. 6. Additional findings as above. Medications Administered Heparin Sodium/Dextrose (Heparin Sodium/Dextrose) 25,000 units in 500 mls @ 27 mls/hr IV .[id number] [facility], [facility]; Protocol Stop: 12/28/20 10:14 Last Admin: 11/28/20 10:51 Dose: 27 units/hr, 0.5 mls/hr Documented by: [id number] Cosigned by: [id number] Morphine Sulfate (Morphine Sulfate 4 Mg/Ml 1 Ml Carp\Vial) 4 mg IV Q15M PRN PRN Reason: Pain Stop: 12/12/20 09:11 Last Admin: 11/28/20 09:37 Dose: 4 mg Documented by: [id number] Admin: 11/28/20 09:21 Dose: 4 mg Documented by: [id number] Discontinued Medications Heparin Sodium (Porcine) (Heparin Sod (Porcine) 1000 Unit/Ml 10 Ml Vial) Confirm Administered Dose 10,000 units .ROUTE .STK-MED ONE Stop: 11/28/20 10:27 Last Admin: 11/28/20 10:52 Dose: 6,000 units Documented by: [id number] Cosigned by: [id number] Heparin Sodium/Dextrose (Heparin Iv Standard With Bolus) 1 ea IV NOW STA; Protocol Stop: 11/28/20 10:13 Last Admin: 11/28/20 11:44 Dose: Not Given Documented by: [id number] Hydromorphone HCl (Hydromorphone Inj 1 Mg/Ml Syringe) 1 mg IV Q30M PRN PRN Reason: Pain Stop: 12/12/20 10:11 Last Admin: 11/28/20 10:54 Dose: 1 mg Documented by: [id number] Admin: 11/28/20 10:16 Dose: 1 mg Documented by: [id number] Sodium Chloride (Nss 1000ml) 1,000 mls @ 999 mls/hr IV .Q1H1M STA Stop: 11/28/20 10:12 Last Infusion: 11/28/20 10:30 Dose: 0 mls/hr Documented by: [id number] Admin: 11/28/20 09:21 Dose: 999 mls/hr Documented by: [id number] Ioversol (Optiray 320 125ml) 120 ml IV ONCE ONE Stop: 11/28/20 09:38 Last Admin: 11/28/20 09:37 Dose: 120 ml Documented by: [id number] Ondansetron HCl (Ondansetron Inj 2 Mg/Ml 2 Ml Vial) 4 mg IV NOW STA Stop: 11/28/20 09:13 Last Admin: 11/28/20 09:21 Dose: 4 mg Documented by: [id number] Additional Comments: Poor data quality, interpretation may be adversely affected Normal sinus rhythm Normal ECG Code Status & VTE Plan Code Status CODE: FULL VTE: TEDS HOSE and Therapeutic Anticoagulation VTE Prophylaxis Plan VTE Prophylaxis will be ordered: Yes Supervising Physician Co-Signing Physician Notes DREA Supervision note: I have personally seen and examined the patient and discussed and verified the martinez points of the history and physical along with the plan with DREA montes the following exceptions and/or additions: This patient is a 30-year-old healthy, active male with 5 days of at first feeling flushed and lightheaded followed by 2 days of progressively worsening severe left-sided chest and left upper quadrant abdominal pain. He denies fevers or chills, no nausea or vomiting. He has no history of bleeding or clotting in the past. He denies any lower extremity pain or swelling He was found to have bilateral segmental and subsegmental PEs and left lower lobe consolidation and small left pleural effusion as well as a right common femoral vein DVT seen on CT angiogram chest/abdomen/pelvis. Dopplers were pending of the lower extremities at the time of admission. In the ER, he was requiring large amounts of IV morphine and then IV Dilaudid to help control his pain but was still having severe pain causing splinting when I saw him. History and ROS reviewed as above most notably to include father with numerous DVT/PEs who suffered a saddle embolus while on Coumadin and is now on Lovenox. His hypercoagulable work-up reportedly has been negative in the past. Vitals reviewed Gen: AAOx3, in moderate distress secondary to pain and with tachypnea, moaning HEENT: Anicteric sclerae, EOMI CV: Mild tachycardia, regular rhythm no mgr nl S1S2 Pulm: Not able to take deep breaths, decreased breath sounds at the bases, no wheezes Abd: Abdomen tense from splinting, not able to get good examination Ext: No edema, no calf tenderness, 2+ DP pulses Skin: No rashes, warm/dry Neuro: Full strength throughout 30-year-old male here with family history of DVT/PE and hypercoagulable state, here with unprovoked acute DVT/PE and significant pleuritic chest pain, possible pulmonary infarct -Plan outlined as above Started on heparin. Discussed options for anticoagulation with patient but would favor IV heparin or Lovenox bridging to therapeutic Coumadin at this time until hypercoagulable work-up results are returned. Could place on DOAC, but these have not been studied as much in inherited hypercoagulable conditions. Pt wants to discuss options with his parents and let Hospitalists know Please schedule him follow-up with anticoagulation clinic after discharge-Dr. Suárez is aware of the case. Does not need thrombolysis as he has no significant swelling or pain lower extremities. Is hemodynamically stable. Pain control as above PG Care Time/CCT Total # of Minutes Spent Total Time Spent with Patient: Total time spent is greater than 50% in coordi nation of care (as documented) at patient's floor/unit and/or counseling patient: Coding Level of Care Code 51548 Initial Inpt Care Lvl 3 Diagnoses Pulmonary embolism I26.94 Pulmonary embolism type: multiple subsegmental (without acute cor pulmonale) Pleural effusion J90 Pain R52 DVT (deep venous thrombosis) I82.411 Affected thrombotic vein of extremity: femoral Chronicity: acute DVT location: lower extremity Laterality: right (1) DVT (deep venous thrombosis) Affected thrombotic vein of extremity: femoral Chronicity: acute DVT location: lower extremity Laterality: right Qualified Code(s): I82.411 - Acute embolism and thrombosis of right femoral vein (2) Pulmonary embolism Pulmonary embolism type: multiple subsegmental (without acute cor pulmonale) Qualified Code(s): I26.94 - Multiple subsegmental pulmonary emboli without acute cor pulmonale
[2020-11-28 11:23] LABS: C Reactive Protein 2.06 mg/dl (0-0.29)
[2020-11-28] MEDS ORDERED: ACETAMINOPHEN 500 MG TAB PO PRN (11:52)
[2020-11-28] MEDS: KETOROLAC TROMETHAMINE 15 MG/ML VIAL IV PRN ×2 (12:46→19:39)
--- NOTE | 2020-11-28 12:47 | Electrocardiogram Report ---
Test Reason : Blood Pressure : / mmHG Vent. Rate : 085 BPM Atrial Rate : 085 BPM P-R Int : 148 ms QRS Dur : 068 ms QT Int : 336 ms P-R-T Axes : 008 040 -04 degrees QTc Int : 399 ms Poor data quality, interpretation may be adversely affected Normal sinus rhythm Normal ECG When compared with ECG of 05-APR-2019 21:44, No significant change was found Confirmed by Russel Craig ([id number]) on 11/28/2020 12:46:41 PM Referred By: REFERRED SELF Confirmed By:Russel Craig
[2020-11-28] MEDS: LIDOCAINE 5% 1 PATCH TD SCH (13:01)
--- NOTE | 2020-11-28 13:55 | XRay Report ---
SINGLE VIEW CHEST CLINICAL HISTORY: Pleural effusion. Pulmonary embolus FINDINGS: An AP, portable, upright chest radiograph is compared to study dated 05/11/2014 and correlat ed with chest CT performed the same day 11/28/2020. The cardiomediastinal silhouette is unremarkable. There are low lung volumes with bibasilar atelectasis. No airspace consolidation or large pleural eff usion is identified. No pneumothorax is seen. The bony thorax is grossly intact. IMPRESSION: No large pleural effusion is identified. The small left pleural effusion seen by CT is to o small to visualize on this AP portable examination. ACT 112: Negative or not required by law. Electronically signed by: Reuben Duckworth M.D. 11/28/2020 1:53 PM
--- NOTE | 2020-11-28 15:49 | Ultrasound Report ---
ULTRASOUND BILATERAL LOWER EXTREMITY VENOUS CLINICAL HISTORY: Pulmonary emboli. COMPARISON STUDY: No priors. TECHNIQUE: Real-time, grayscale, and color Doppler sonography of the deep veins of the right and left lower extremity was performed from the inguinal crease to the calf. Compression and augmentation wer e utilized. FINDINGS: There is no sonographic evidence of deep venous thrombosis identified in the right or left lower extremity. The common femoral, superficial femoral, and popliteal veins are patent and normally compressible bilaterally. The greater saphenous vein and the profunda femoris vein at the junction w ith the common femoral vein are clear in both legs. The visualized calf veins are patent bilaterally. IMPRESSION: There is no sonographic evidence of deep venous thrombosis identified in the right or lef t lower extremity. ACT 112: Negative or not required by law. Electronically signed by: Reuben Duckworth M.D. 11/28/2020 3:47 PM
[2020-11-28 17:49] LABS: Partial Thromboplastin Ratio 1.8
[2020-11-28 19:16] LABS: iSTAT Creatinine 0.9 mg/dl (0.6-1.3); iSTAT Hemoglobin 14.6 g/dl (14.0-18.0); iSTAT Ionized Calcium 1.22 mmol/l (1.12-1.32); iSTAT Potassium 4.5 mmol/L (3.3-5.0)
[2020-11-28] MEDS: ACETAMINOPHEN 325 MG TAB PO PRN (19:38)
[2020-11-28] MEDS: DOCUSATE SODIUM 100 MG CAP PO SCH (19:39)
[2020-11-29] MEDS: MoRPHine SULFATE 4 MG/ML 1 ML CARP\\VIAL IV PRN ×5 (00:30→23:12)
[2020-11-29] MEDS: ACETAMINOPHEN 325 MG TAB PO PRN (02:59)
[2020-11-29] MEDS: KETOROLAC TROMETHAMINE 15 MG/ML VIAL IV PRN ×2 (03:00→09:28)
[2020-11-29] MEDS: HEPARIN SODIUM/DEXTROSE 25,000 UNITS/500 ML BAG IV SCH ×2 (04:30→23:11)
[2020-11-29 08:02] LABS: Basophils # (auto) 0.02 K/uL (0-0.2); Basophils % (auto) 0.1 %; Eosinophils # (auto) 0.05 K/uL (0-0.5); Eosinophils % (auto) 0.3 %; Hematocrit (blood only) 41.4 % (42-52); Immature Granulocytes # (auto) 0.03 K/uL (0.00-0.02); Immature Granulocytes % (auto) 0.2 %; Lymphocytes # (auto) 1.48 K/uL (1.2-3.4); Lymphocytes % (auto) 10.3 %; Mean Corpuscular Hemoglobin 28.5 pg (25-34); Mean Corpuscular Hgb Conc 33.8 g/dL (32-36); Mean Corpuscular Volume 84.3 fL (80-100); Mean Platelet Volume 8.8 fL (7.4-10.4); Monocytes # (auto) 1.51 K/uL (0.11-0.59); Monocytes % (auto) 10.5 %; Neutrophils # (auto) 11.33 K/uL (1.4-6.5); Neutrophils % (auto) 78.6 %; Platelet Count 203 K/uL (130-400); RDW Coefficient of Variation 12.8 % (11.5-14.5); RDW Standard Deviation 39.5 fL (36.4-46.3); Red Blood Count 4.91 M/uL (4.7-6.1); White Blood Count 14.42 K/uL (4.8-10.8)
[2020-11-29 08:24] LABS: Partial Thromboplastin Ratio 1.8; Prothrombin Time 10.5 Seconds (9.0-12.0)
[2020-11-29 08:34] LABS: Partial Thromboplastin Time 48.3 Seconds (21.0-31.0)
[2020-11-29] MEDS: LIDOCAINE 5% 1 PATCH TD SCH (09:23)
[2020-11-29] MEDS: DOCUSATE SODIUM 100 MG CAP PO SCH ×2 (09:25→19:50)
[2020-11-29 09:28] LABS: BUN Creatinine Ratio 12.4 (10-20); Calcium 9.6 mg/dl (8.5-10.1); Creatinine Clr Calc Pharmacy 101.9 ml/min; Est GFR (African American) 108.6; Est GFR (Non-African American) 93.7; Potassium 5.3 mmol/L (3.5-5.1)
[2020-11-29] MEDS: ACETAMINOPHEN 325 MG TAB PO SCH ×4 (11:40→23:11)
--- NOTE | 2020-11-29 13:27 | Medical Student Progress Note ---
Date of Service November 29, 2020 Assessment & Plan (1) Pulmonary embolism: Mr. 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 D-dimer 2400, fibrinogen 431, initial CARBIDE TOOL MAKER 2.06 and ESR 21. EKG showed NSR, CXR showed no large pleural effusion, and venous doppler found no sonographic evidence of DVT identified. Chest CTA found bilateral segmental and subsegmental pulmonary embolism, small left basilar consolidation likely atelectasis, moderate constipation, and DVT in the right common femoral vein. PE -Acute PE with PESI score 1, no recent travel or immobilization so considered an unprovoked PE. Has FHx of DVT/PE. -Hemodynamically stable with periods of hypertension, tachycardia, tachypnea, and Tmax 38.0. No evidence of right heart strain on CT and normal troponin. -Pain this morning 2/10 at rest and 10/10 with any movement. Able to walk to bathroom to urinate but no BM since Sunday and not able to breathe deeply due to pain. See below. -Continue heparin sodium/dextrose 1350 units/hr and received 10,000 units initial bolus in ED. -Will need indefinite anticoagulation due to PE recurrence risk. Discussed DOAC vs. warfarin with pt and he is amenable. Coag panel pending, and if antiphospholipid or lupus anticoagulant antibody positive then warfarin may be a better choice watermaster, otherwise DOAC likely the best choice. -Follow with Dr. Suárez in the anticoagulation clinic after discharge. FEN: PO fluids, monitor electrolytes, regular diet Code status: Full Code Disposition: Remain inpatient to control pain and continue anticoagulation with the goal of improved breathing and incentive spirometry prior to discharge. Pulmonary embolism type: multiple subsegmental (without acute cor pulmonale) Qualified Code(s): I26.94 - Multiple subsegmental pulmonary emboli without acute cor pulmonale (2) Pleural effusion: Small left pleural effusion seen on CT A/P, not large enough to be seen on CXR. Likely secondary to PE inflammation and atelectasis. No acute management indicated. (3) Pain: Pain still significant and likely secondary to PE. Pt 10/10 pain with any movement and it is resulting in splinting on exam. -Acetaminophen 650mg q4h and ketorolac 15 IV q6h switch from PRN to scheduled in order to better control pain. Continue scheduled lidocaine patches. - Continue morphine 4mg PRN. Pt pain appears somewhat better controlled this afternoon but if it worsens we will consider WATER AND GAS HELPER or acute pain service consult for potential nerve block evaluation. (4) DVT (deep venous thrombosis): CTA showed DVT in right common femoral vein. Doppler did not find evidence of DVT. -Continue heparin 1350 units/hr IV. Transition to likely DOAC prior to discharge re: indefinite anticoagulation. Affected thrombotic vein of extremity: femoral Chronicity: acute DVT location: lower extremity Laterality: right Qualified Code(s): I82.411 - Acute embolism and thrombosis of right femoral vein Admission and Anticipated Discharge Date Admission Date: November 28, 2020 Supervising Attestation I personally examined the patient and verified all martinez points of history and exam, discussed case, and agree with decision making with Victor Hugo Anguiano MS4 Feeling rather significant pain. Still hurts to take much deep breath. Does not seem to have overt dyspnea, however. Vitals noted, in general he is awake and alert does appear to be in discomfort. No respiratory distress but movement seems to cause him discomfort. HEENT normocephalic atraumatic mucous membranes moist, breathing unlabored no accessory muscle use good effort, lungs are clear although somewhat limited exam due to pain. No focal neuro deficits. Acute PE/what appears to be evolving pulmonary infarctfortunately from a PE standpoint he is relatively stable, however from a pain standpoint he is cer tainly very uncontrolled. Continue to titrate pain regimentoday scheduled Tylenol and Toradol keep morphine as needed, follow-up throughout the afternoonif pain is not doing better consider escalation to a WATER AND GAS HELPER, or consult with pain management for nerve block if this could be helpful. Continue anticoagulation. Given that this was an unprovoked event, most newer guidelines would suggest indefinite anticoagulation. Otherwise as above. Subjective Mr. 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 It worsened significantly on Sunday which led him to come to the ED. He states he tried NSAIDs for the pain and drank about a dozen gatorade bottles over the 48 hours prior to admission in order to try and stay hydrated. This morning he is feeling a fair amount of pain, 2/10 at rest and 10/10 with any movement. He says he is able to bear the pain when he needs to walk to the bathroom which he has done three times since admission, although it is painful. Otherwise he is keeping quite still. While I was talking to him a nurse came to put on his lidocaine patch and we had to stop the conversation for about two minutes since he was in so much pain from rolling over briefly to put on the patch. He was able to eat some pudding for breakfast and drink some water, but even that causes pain. He says he has not had a BM since Sunday, which he attributes to his muscles being so tight due to the pain. With regard to risk factors, he said he has no history of DVT/PE but his father has a clotting disorder and has been on anticoagulation for years. Pt states he has not travelled at all recently, and that he is a busy worker with no recently periods of immobilization. Review of Systems Review of Systems: All systems reviewed & are unremarkable except as noted in HPI & below Constitutional: + weakness (endorses generalized weakness over the past few days); no fever Respiratory: + pain on inspiration; no cough and no dyspnea Cardiovascular: + chest pain (L>R) and + lightheadedness; no dyspnea, no palpitations and no syncope Gastrointestinal: + abdominal pain, + nausea (mild, still able to eat) and + constipation; no heartburn, no vomiting, no dysphagia and no diarrhea/loose stools Genitourinary: no dysuria and no flank pain Musculoskeletal: no back pain Neurologic: no headache(s) and no confusion Physical Exam Constitutional: well developed, well nourished, + acute distress (mild acute distress at rest, laying in bed quite still) and cooperative; + uncomfortable ENMT: external ear and nose normal, oropharynx normal Respiratory: normal respiratory effort (decreased respiratory effort secondary to pain); no cough Auscultation: lungs clear to auscultation bilaterally; no rales, no rhonchi and no wheezes inspiratory splinting, chest tender to palpation L>R Cardiovascular: RRR, no murmur, no edema Heart Sounds: normal S1 and normal S2; no gallop, no murmur and no cardiac rub Chest (Breasts): Chest: normal inspection of chest Gastrointestinal (Abdomen): Inspection/Auscultation: abdomen normal to inspection and normal bowel sounds; abdomen not distended Percussion/Palpation: + abdomen tender (mildly tender to palpation, especially in LUQ), + guarding and + abdomen firm (abd muscles tensed) Musculoskeletal: Head/Neck/Chest: normocephalic and head atraumatic Skin: no rashes, warm and dry Psychiatric: A+Ox3, euthymic affect Results & Data ([facility]) Vital Signs (Past 12 Hours) Vital Signs Temp Pulse Pulse Resp BP BP Pulse Ox 11/29/20 11:39 38.0 C H 114 H 19 135/92 95 11/29/20 07:52 36.7 C 96 H 22 148/91 H 97 11/29/20 07:16 92 H 11/29/20 02:51 37.9 C H 102 H 21 143/92 H 94
[2020-11-29] MEDS: KETOROLAC TROMETHAMINE 15 MG/ML VIAL IV SCH ×2 (16:25→19:55)
--- NOTE | 2020-11-29 19:10 | Billing Data ---
Date of Service November 29, 2020 Coding Level of Care Code 57194 Subseq Hosp Care Lvl 3
[2020-11-30] MEDS: KETOROLAC TROMETHAMINE 15 MG/ML VIAL IV SCH ×4 (04:06→23:39)
[2020-11-30] MEDS: ACETAMINOPHEN 325 MG TAB PO SCH ×5 (04:06→19:02)
[2020-11-30] MEDS: MoRPHine SULFATE 4 MG/ML 1 ML CARP\\VIAL IV PRN ×6 (04:52→20:50)
[2020-11-30 06:13] LABS: Hematocrit (blood only) 39.5 % (42-52); Hemoglobin 13.3 g/dL (14.0-18.0); Mean Corpuscular Hemoglobin 28.7 pg (25-34); Mean Corpuscular Hgb Conc 33.7 g/dL (32-36); Mean Corpuscular Volume 85.1 fL (80-100); Platelet Count 197 K/uL (130-400); RDW Coefficient of Variation 12.6 % (11.5-14.5); RDW Standard Deviation 38.9 fL (36.4-46.3); Red Blood Count 4.64 M/uL (4.7-6.1); White Blood Count 25.88 K/uL (4.8-10.8)
[2020-11-30 06:29] LABS: Partial Thromboplastin Ratio 1.9
[2020-11-30 06:33] LABS: Partial Thromboplastin Time 48.8 Seconds (21.0-31.0)
[2020-11-30 06:35] LABS: Basophils # (auto) 0.01 K/uL (0-0.2); Immature Granulocytes # (auto) 0.35 K/uL (0.00-0.02); Immature Granulocytes % (auto) 1.4 %; Lymphocytes # (auto) 0.47 K/uL (1.2-3.4); Lymphocytes % (auto) 1.8 %; Monocytes # (auto) 1.84 K/uL (0.11-0.59); Monocytes % (auto) 7.1 %; Neutrophils # (auto) 23.21 K/uL (1.4-6.5); Neutrophils % (auto) 89.7 %
[2020-11-30 06:40] LABS: BUN Creatinine Ratio 10.7 (10-20); Calcium 8.8 mg/dl (8.5-10.1); Creatinine Clr Calc Pharmacy 92.3 ml/min; Est GFR (African American) 96.4; Est GFR (Non-African American) 83.2; Potassium 4.6 mmol/L (3.5-5.1)
[2020-11-30] MEDS: LIDOCAINE 5% 1 PATCH TD SCH (08:45)
[2020-11-30] MEDS: DOCUSATE SODIUM 100 MG CAP PO SCH ×2 (08:45→19:02)
--- NOTE | 2020-11-30 08:49 | XRay Report ---
XR chest 1V portable HISTORY: elevated white count COMPARISON: Chest 11/28/2020. Chest CTA 11/28/2020. FINDINGS: No pneumothorax. Increase in size in the small to moderate left pleural effusion. Left basi lar densities persist. The right lung is clear. The heart is normal in size. IMPRESSION: Increase in size in the small to moderate left pleural effusion. Left basilar densities persist. ACT 112: Negative or not required by law. Electronically signed by: Luis A Braun M.D. 11/30/2020 8:48 AM
[2020-11-30] MEDS ORDERED: VANCOMYCIN CONSULT ACTIVE PRN (09:52)
[2020-11-30 10:08] LABS: Appearance Urine Clear (Clear); Bacteria Urine Automated Negative (Negative); Bilirubin Urine Negative (Negative); Blood Urine Negative (Negative); Cast Urine Automated 0 /lpf (0-5); Color Urine Orange; Glucose Urine UA Negative (Negative); Ketones Urine Negative (Negative); Leukocyte Esterase Urine Negative (Negative); Nitrite Urine Negative (Negative); Protein Urine 1+ (Negative); RBC Urine Automated 0-4 /hpf (0-4); Urobilinogen Urine Negative (Negative)
[2020-11-30] MEDS ORDERED: VANCOMYCIN HCL 2,000 MG in SODIUM CHLORIDE 0.9% 500 ML IV ONE (10:30)
[2020-11-30] MEDS: CEFEPIME 2,000 MG in SYRINGE 0 ML IV SCH ×2 (10:30→18:05)
--- NOTE | 2020-11-30 13:19 | Medical Student Progress Note ---
Date of Service November 30, 2020 Assessment & Plan (1) Pulmonary embolism: Mr. 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 D-dimer 2400, fibrinogen 431, initial RESP THERAPIST 2.06 and ESR 21. EKG showed NSR, CXR showed no large pleural effusion, and venous doppler found no sonographic evidence of DVT identified. Chest CTA found bilateral segmental and subsegmental pulmonary embolism, small left basilar consolidation likely atelectasis, moderate constipation, and DVT in the right common femoral vein. PE -Acute PE with PESI score 1, no recent travel or immobilization so considered an unprovoked PE. Has FHx of DVT/PE. -Hemodynamically stable with periods of hypertension, tachycardia, tachypnea, and Tmax 38.2. No evidence of right heart strain on CT and normal troponin. -Pain today much improved per pt and exam. Abd muscles much less tensed today and able to take deeper breaths and move around without much discomfort. Given incentive spirometry. -Continue heparin sodium/dextrose 1350 units/hr and received 10,000 units initial bolus in ED. -Will need indefinite anticoagulation due to PE recurrence risk. Discussed outpatient DOAC vs. warfarin with pt and he is amenable. Coag panel pending, and if antiphospholipid or lupus anticoagulant antibody positive then warfarin may be a better choice manager terminal, otherwise DOAC likely the best choice. Start apixaban tonight. -Follow with Dr. Suárez in the anticoagulation clinic after discharge. FEN: PO fluids, monitor electrolytes, regular diet Code status: Full Code Disposition: Remain inpatient to provide antibiotics, monitor breathing and pain control, and recheck labs tomorrow re: new PNA. Pulmonary embolism type: multiple subsegmental (without acute cor pulmonale) Qualified Code(s): I26.94 - Multiple subsegmental pulmonary emboli without acute cor pulmonale (2) Pain: Pain with pain meds much improved today. Pt on scheduled acetaminophen, ketorolac, and lidocaine patches, with available PRN morphine 4mg which patient has been using some. Consider DATABASE CONSULTANT or nerve block evaluation if pain worsens but the current pain regimen is effective for now. (3) DVT (deep venous thrombosis): CTA showed DVT in right common femoral vein. Doppler did not find evidence of DVT. -Continue heparin 1350 units/hr IV. Transition to apixaban tonight re: indefinite anticoagulation. Affected thrombotic vein of extremity: femoral Chronicity: acute DVT location: lower extremity Laterality: right Qualified Code(s): I82.411 - Acute embolism and thrombosis of right femoral vein (4) Pneumonia: -WBC increased from 14.42 to most recently 25.88 with left shift. Lactate ordered and found to be 2.1, procalcitonin 24. Repeat CXR showed increase in size of small to moderate left pleural effusion with left basilar densities persisting. Pt denies cough or sputum production, but he is quite young and healthy at baseline and was breathing poorly yesterday re: PE. -Likely PNA. MRSA nares negative. BCx pending. Started on cefepime IV with likely plan to transition to cefnidir PO closer to discharge if improvement. (5) Constipation: Moderate constipation on CT. Pt has not had a BM since Sunday, although not feeling constipation pain at this time. On docusate. Continue to monitor. Admission and Anticipated Discharge Date Admission Date: November 28, 2020 Supervising Attestation I personally examined the patient and verified all martinez points of history and exam, discussed case, and agree with decision making with Victor Hugo Anguiano MS4 Seen twice today. This morning feeling much better than yesterday, breathing easier much less pain, getting around well no dyspnea on exertion. Seen later in the afternoon where there is worsening pain, he is still not more short of breath, but his pain has returned not quite as severely as yesterday but worsened this morning. The pain is left-sided chest pain worse with movement worse with a deep breath. He is not coughing or dyspneic. Vitals noted, in general he is awake and alert pleasant initially no distress, later appearing in pain and laying still. HEENT normocephalic atraumatic mucous membranes moist. Lungs show diminished breath sounds base left otherwise clear to auscultation bilaterally no rales rhonchi or wheeze with good effort. Neuro shows no focal deficits. Acute pulmonary embolicontinue anticoagulation, supportive care. Pneumonia secondary to pulmonary infarctfairly rapidly appears to have developed a rather significant left lower lobe pneumoniait appears consistent with the area of his pulmonary infarctempiric antibiotic started (MRSA nares negative therefore vancomycin was not initiated, cefepime started due to the fact that his infection started while he is in the hospital, but I suspect will be able to quickly downgrade to nonpseudomonal coverage). Supportive care, serial exams, vigilance Severe pleuritic paincontinue multimodal pain control Otherwise as above Subjective Mr. Salcedo is feeling much better today. He states he is still having some hot flashes, but is not feeling feverish. His pain on pain meds has improved noticeably, from 10/10 with any movement yesterday to 3/10 pain with movement today. He is able to sit up, walk to the bathroom, and eat without much pain after struggling significantly yesterday. He states he was nauseous during the night and received from PRN ondansetron. With that said, he has improved appetite this morning and is able to chew and eat cereal this morning whereas he felt he could only eat pudding yesterday. He feels his left ribs are a bit tender still, but overall is much less tender and tight than yesterday. He is not feeling constipated, but notes he has not had a BM since Sunday and is on docusate. He received incentive spirometry and is starting to work on it this morning. Review of Systems Review of Systems: All systems reviewed & are unremarkable except as noted in HPI & below Constitutional: + chills; no fever Respiratory: + dyspnea (much improved from yesterday); no cough and no sputum production Cardiovascular: no chest pain, no dyspnea, no palpitations and no lightheadedness Gastrointestinal: + constipation; no abdominal pain, no dysphagia and no diarrhea/loose stools Genitourinary: no dysuria Physical Exam Constitutional: WD/WN, vitals as above cooperative and comfortable; no acute distress ENMT: external ear and nose normal, oropharynx normal Respiratory: normal respiratory effort; no respiratory distress and does not use accessory muscles Auscultation: lungs clear to auscultation bilaterally; no rales, no rhonchi and no wheezes Cardiovascular: RRR, no murmur, no edema Heart Sounds: normal S1 and normal S2; no gallop, no murmur and no cardiac rub Gastrointestinal (Abdomen): normal bowel sounds, soft, nontender, no hepatosplenomegaly Percussion/Palpation: abdomen soft; abdomen nontender, no guarding, abdomen not rigid and abdomen not firm Musculoskeletal: no cyanosis or clubbing, extremities motor strength 5/5 Skin: no rashes, warm and dry Psychiatric: A+Ox3, euthymic affect Results & Data ([facility]) Vital Signs (Past 12 Hours) Vital Signs Temp Pulse Pulse Resp BP Pulse Ox 11/30/20 11:52 36.5 C 101 H 18 117/77 96 11/30/20 08:09 36.7 C 109 H 19 106/70 93 11/30/20 07:33 114 H 11/30/20 03:32 38.2 C H 127 H 20 122/73 91
[2020-11-30] MEDS ORDERED: MoRPHine SULFATE 4 MG/ML 1 ML CARP\\VIAL IV STA ×2 (16:47→19:45)
[2020-11-30] MEDS ORDERED: POLYETHYLENE (MIRALAX) 17 GM PACK PO PRN (16:47)
[2020-11-30] MEDS: HEPARIN SODIUM/DEXTROSE 25,000 UNITS/500 ML BAG IV SCH (18:02)
--- NOTE | 2020-11-30 19:06 | Billing Data ---
Date of Service November 30, 2020 Coding Level of Care Code 67558 Subseq Hosp Care Lvl 3
[2020-11-30] MEDS ORDERED: OPTIRAY 320 125ml IV ONE (19:51)
--- NOTE | 2020-11-30 20:02 | Communication Note ---
Date of Service: November 30, 2020 Called to bedside by nursing staff at 1930 as patient had sudden onset of worsening chest pain with rapid breathing. Maintaining appropriate saturations at that time while on room air. Reported to bedside with day team provider (Dr. Koroma). At that time VS stable with tachycardia and saturations >90%. Patient complaining of worsening chest pain over left lower rubs, that worsens with deep inspiration. Patient with rigors, and rapid shallow breathing, minimal breath sounds auscultated over left lower lobe. Given presentation for bilateral PEs and this acute worsening, ordered STAT CT Chest PE protocol. EKG demonstrating sinus tachycardia at that time without signs of ST segment, or T wave changes. Patient was started on 2L Nasal cannula for transportation; maintaining saturations >91% with maintained increase work of breathing. During CT PE, patient continued to have rapid respiratory rate and desaturated to the 50s was switched to 10L NC and stabilized oxygen saturations. Discussed changes in oxygen requirements and CT scan results with on-call spudder who recommended transfer to ICU for Chest tube placement. Discussed change in condition with on-call Preparator and transferred patient to ICU for continued management and stabilization of condition.
--- NOTE | 2020-11-30 20:23 | CT Scan Report ---
CT ANGIOGRAPHY OF THE CHEST, PULMONARY EMBOLUS PROTOCOL CLINICAL HISTORY: Shortness of breath. Evaluate for pulmonary embolus. COMPARISON STUDY: Chest CT November 28, 2020. Chest radiograph performed earlier today. TECHNIQUE: Following IV administration of 117 mL of Optiray-320, helical axial images of the chest we re obtained utilizing the pulmonary embolus protocol. Maximal intensity projections and sagittal and coronal reformats were viewed on an independent 3D workstation. IV contrast was administered withou t complication. Automated exposure control was utilized for the study. A dose lowering technique wa s utilized adhering to the principles of ALARA. CT DOSE: 517.98 mGy.cm FINDINGS: Evaluation for pulmonary embolus is compromised given respiratory motion and suboptimal op acification. Segmental and subsegmental emboli within the right lower lobe are noted. The left lower lobe pulmonary emboli shown on CT of November 28, 2020 are not well visualized on this exam. No definite new pulmonary emboli are identified. There is no thoracic aortic dissection. The size of the heart i s normal. There is no pericardial effusion. Subpleural right lower lobe opacity reflects atelectasis with possible trace right pleural effusion. There is no pneumothorax. A moderate left pleural effusio n has significantly increased in size since chest CT of November 28, 2020. This may be loculated. Extens gabriele left lower lobe airspace opacity has significantly progressed. The left lower lobe is entirely op acified. Segmental left upper lobe opacity favors atelectasis. Note is made of a 4.2 cm subpleural ga s containing focus within the left lower lobe. This favors a pulmonary infarct with possible small fo ci of cavitation. Jerry lung parenchyma demonstrates decreased enhancement. Bony thorax is unremarkab le. Visualized portions of the upper abdomen are unremarkable. IMPRESSION: 1. Evaluation for pulmonary emboli compromised given respiratory motion and suboptimal opacification. Redemonstration of multiple segmental and subsegmental pulmonary emboli, as described above. No defi nite new pulmonary emboli when compared to CT of November 28, 2020. Embolus burden likely decreased sinc e prior CT. 2. Significant increase in size of a moderate left pleural effusion, likely loculated. Sterility of t his effusion cannot be assessed by CT. Pulmonary consultation might be considered. 3. Interval development of left lower lobe opacification. This may reflect pneumonia or atelectasis. 4. Subpleural left lower lobe gas containing focus with decreased enhancement of the adjacent lung pa renchyma. This favors a pulmonary infarct with small foci of cavitation. Superimposed pneumonia canno t be excluded. 5. Subpleural right lower lobe opacity which favors atelectasis. ACT 112: Negative or not required by law. Electronically signed by: Enrico Perry M.D. 11/30/2020 8:22 PM
[2020-11-30 20:32] LABS: Hematocrit (blood only) 35.7 % (42-52); Hemoglobin 12.3 g/dL (14.0-18.0)
[2020-11-30 20:44] LABS: Partial Thromboplastin Ratio 1.7; Partial Thromboplastin Time 44.7 Seconds (21.0-31.0)
[2020-11-30 20:55] LABS: iSTAT Allen Test Pass; iSTAT Art Bld Gas pCO2 Correct 43 mmHg (35-46); iSTAT Arterial Blood Gas HCO3 28 meg/L (19-24); iSTAT Arterial Blood Gas pCO2 44 mmHg (35-46); iSTAT Arterial Blood Gas pH 7.41 (7.35-7.45); iSTAT Arterial Blood Gas pO2 77 mmHg (80-95); iSTAT Arterial Blood Gas pO2 C 74; iSTAT Carbon Dioxide 29 mmol/L (24-31); iSTAT Hematocrit 37 % (42-52); iSTAT Hemoglobin 12.6 g/dl (14.0-18.0); iSTAT Potassium 3.9 mmol/L (3.3-5.0); iSTAT Site R Radial; iSTAT Sodium 133 mmol/L (135-144)
[2020-11-30] MEDS ORDERED: KETAMINE HCL INJ 50 MG/ML 10 ML VIAL IV STA (21:27)
[2020-11-30] MEDS ORDERED: ALTEPLASE, RECOMBINANT 10 MG in SYRINGE 50 ML IPL SCH ×2 (21:30→22:00)
[2020-11-30] MEDS ORDERED: fentaNYL citrate 100 MCG/2 ML VIAL IV ONE (21:32)
--- NOTE | 2020-11-30 21:32 | Pre Anesthesia Assessment ---
Date of Service November 30, 2020 Pre Sedation Assessment Vital Signs Temp Pulse Pulse Resp BP BP BP 11/30/20 21:00 117 H 11/30/20 20:59 36.5 C 11/30/20 20:32 104/76 11/30/20 20:26 118 H 188/111 H 11/30/20 20:09 128/75 11/30/20 20:05 127 H 147/84 H 11/30/20 18:41 90 11/30/20 15:35 36.6 C 94 H 17 103/68 11/30/20 11:52 36.5 C 101 H 18 117/77 11/30/20 08:09 36.7 C 109 H 19 106/70 11/30/20 07:33 114 H 11/30/20 03:32 38.2 C H 127 H 20 122/73 11/30/20 00:07 37.3 C 105 H 16 125/76 Pulse Ox 11/30/20 21:00 97 11/30/20 20:59 11/30/20 20:32 98 11/30/20 20:26 99 11/30/20 20:09 11/30/20 20:05 100 11/30/20 18:41 11/30/20 15:35 96 11/30/20 11:52 96 11/30/20 08:09 93 11/30/20 07:33 11/30/20 03:32 91 11/30/20 00:07 94 Cardiovascular + tachycardic + S1 normal and + S2 normal Respiratory + respiratory effort normal, + hyperresonance to percussion, + tactile fremitus and + able to speak in complete sentences; no respiratory distress, no retractions, no uses accessory muscles and no prolonged expiratory phase Pre-Sedation Airway Assessment Smoking Status: Never smoker Hx Sleep Apnea: No Hx Difficult Intubation: No Short, Thick Neck: No Thyromental Distance: > or= 3.5 Finger Breadths Oral Cavity: + WNL Mallampati Class: II ASA: ASA2E NPO Status Date of Last Intake of Fluids: 11/30/20 Time of Last Intake of Fluids: 19:30 Last Oral Intake of Fluids Comment: water intake Date of Last Intake of Solid Food: 11/30/20 Time of Last Intake of Solid Foods: 09:00 Last Intake of Solids Comment: breakfast this am Procedure Planning Contraindications for Sedation: none Current Medications Reviewed: Yes Notes The planned sedation has been discussed with the patient. Informed Consent was obtained. I have identified the patient, determined the appropriateness of sedation and have assessed the patient immediately prior to the procedure. All medicine(s) and interventions are by my order. Emergent moderate sedation planned for tube thoracostomy placement for hypoxemia and pleural effusion.
--- NOTE | 2020-11-30 21:34 | Critical Care Consultation ---
Date of Consultation November 30, 2020 Assessment & Plan (1) Admitted to intensive care unit: Reason Critically Ill: 30-year-old male admitted with PEs presents to the ICU with worsening hypoxia and respiratory distress with worsening left effusion Neuro - Pain control: Morphine, Toradol -As needed Zofran for nausea Cardiac - Sinus tach on monitor, continuous monitoring on telemetry Hemodynamically stable without use of vasopressors No evidence of right heart strain on CT, troponins negative EKG with ST depression anterior leads is likely attributed to hypoxic episode, will repeat study in a.m. Respiratory - Hypoxic respiratory failure-patient with evolving large effusion likely inf ectious and secondary to empyema, also undergoing treatment for segmental and subsegmental PEs -No evidence of new PEs or evolution of existing bilateral subsegmental and segmental PEs on the repeat CTA chest -Troponin remains negative and no evidence of heart strain on imaging, remains hemodynamically stable -Continue heparin drip -Family history of clotting disorder on father's side, genetic/immunology work-up pending -Large effusion demonstrated on repeat CT consistent with empyema likely secondary to loculation -Continue antibiotics, see septic management below -Chest tube for drainage was attempted but unsuccessful placement this evening -Pleural fluid studies were able to be collected and study and cultures pending -Patient's respiratory status currently stable with 6 L Oxymask, will reassess need for drain in a.m., consider consult to pulm -Follow-up chest x-ray in a.m., continuous monitoring on ET CO2 and oxygen sats -Patient's respiratory distress and hypoxia appear to be improved with adequate pain control, most likely inspiratory pain contributing to hypoxia/resp distress -We will keep patient in ICU for the time being GI - We will keep n.p.o. for now for potential procedures RENAL/LYTES - Creatinine electrolytes within normal limits, monitor routine BMPs and replete as indicated Lactic acidosislikely secondary to presumed pulmonary infection -No anion gap on BMP or metabolic acidosis demonstrated on ABG -Continue with IV fluid resuscitation and treat underlying cause, trend - Strict I's and O ENDO - No history of diabetes or thyroid disease ICU hyperglycemic protocol HEME - H&H stable, monitor with routine CBCs ID - Sepsispatient with fevers, WBC, pro Jorge L, and lactic acidosis -Likely pulmonary source as patient has evolving left pleural effusion with imaging consistent with empyema -UA unremarkable, blood cultures pending -Pleural fluid studies and cultures pending. pH resulted at 7.08 consistent with infectious etiology -Nasal MRSA negative -COVID-19 negative on admission -Continue cefepime for now LINES/IV ACCESS - Peripheral IVs DVT -noted on CT abdomen pelvis in the right common femoral vein -No sonographic evidence of DVT in the right or left lower extremity on venous Doppler study - SCDs, continue heparin drip I have personally spent 50 minutes of critical care time in the direct management of this patient. This is a life/limb threatening event. This includes time spent evaluating patient, direct bedside care, chart review, placing orders, interpretation of diagnostic studies, discussion with consultants, patient, and family members, as well as other required patient management activities. This time is exclusive of all separately billable procedures, and teaching time and separate from and in addition to any other critical care service time. Thank you for allowing us to participate in the care of this patient. Please refer to my attending physician's documentation for any further recommendations. (2) Respiratory failure with hypoxia: (3) Empyema lung: (4) Pneumonia: (5) Pulmonary embolism: (6) DVT (deep venous thrombosis): (7) Chest pain: (8) Pleural effusion: Supervising Physician Co-Signing Physician Notes I have personally evaluated and examined this patient. I agree with assessment and plan of Jaye SHEPARD. I was called to bedside to evaluate the compressive atelectasis causing hypoxic respiratory failure. Bedside ultrasound demonstrated this was a loculated effusion the decision was made that the patient would benefit from thoracentesis to confirm empyema and hopefully obtain speciation of any organisms and then have chest tube placement for mist 2 protocol for dissolving loculations. Patient's hemodynamics are reassuring the tachycardia believe has a large component of pain response contributing to the tachycardic drive. See procedure notes for further details. History of Present Illness Attending Physician: Ashutosh Lim DO History of Present Illness Mr. 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 He has a family history of pul monary embolism and blood clots on his father's side and his father is on long- term anticoagulation. He had a CTA of the chest in the emergency department which noted segmental and subsegmental pulmonary embolisms in the right upper, right middle, right lower, and left lower pulmonary arteries. There is a small left pleural effusion with basilar consolidation on the initial scan. CTA of the abdomen also revealed a right common femoral vein thrombosis. Patient had been admitted to PCU and was undergoing therapy with heparin drip with plan to convert to oral anticoagulants. Today he had increasing shortness of breath and pain associated with breathing. His WBC was noted to be significantly elevated this morning and a pro-Jorge L was significantly elevated. Blood cultures were collected and he was started on cefepime. This afternoon the patient was noted to become hypoxic and was sent for repeat of chest CTA. Redemonstration of the multiple segmental and subsegmental PEs were noted w ithout any evidence of new PE, however there was significant increase in size of the left pleural effusion with subpleural left lower lobe gas which favored pulmonary infarct with small foci of cavitation. Would suspect this developed to empyema. Due to patient's newly developed hypoxia and increased discomfort with respirations, decision was made to transfer to the ICU for further level of care. On arrival to the ICU a left chest tube was attempted but post procedure chest x-ray revealed that the tube was outside of the pleural space and this was removed. However, samples/culture of the patient's effusion were able to be collected and sent to lab. Currently patient is maintaining oxygen saturations in the upper 90s on 6 L oxygen mask. We will hold off on further procedures overnight unless the patient were to further decompensate. Plan to monitor closely in the ICU for the time being. Currently, patient is comfortable and resting following sedation/narcotics administered for procedure. He is protecting his airway and arousable to minor stimulation. Prior to this, the patient was alert and oriented and in notable acute distress with complaints of severe pain associated with deep inspiration. He was mildly tachypneic with shallow breathing but no use of accessory muscles and stated that he had felt more short of breath than earlier. He denied recent illness or fevers, headache or dizziness, nausea or vomiting, abdominal pain, diarrhea, palpitations, or swelling in extremities. Allergies Allergy/AdvReac Type Severity Reaction Status Date / Time No Known Allergies Allergy Unknown Verified 07/20/19 21:52 Home Medications Medication Instructions Recorded Confirmed Type acetaminophen [Tylenol Extra 1,000 mg PO BID PRN 04/05/19 04/05/19 History Strength] ibuprofen 800 mg PO BID PRN 04/05/19 04/05/19 History Patient History Medical History (Updated 12/01/20 @ 00:28 by DREA Mendoza) No significant medical problems Surgical History No history of previous surgery Family History (Updated 11/28/20 @ 11:28 by DREA Chou) Father Clotting disorder Unknown work up, father with multiple PE and DVT on chronic anticoagulation - required a IVC filter at one time, but has since been removed Coronary heart disease Hypertension Pulmonary embolism Deep vein thrombosis Mother Hypertension Social History Smoking Status: Never smoker Tobacco Type: Cigarettes Hx Alcohol Use: No Hx Substance Use: No Preferred Language: Togolese Communication Ability: Effective Undercoater Required: No Beliefs That Will Affect Care: None Current Living Situation: Alone Other Information That Helps Us Care for You: No Feels Safe at Home: Yes Assistive Devices: Oxygen - Continuous Review of Systems Review of Systems: All systems reviewed & are unremarkable except as noted in HPI & below Physical Exam Constitutional: healthy appearing and comfortable Eyes: PERRL, conjunctivae normal, anicteric sclerae ENMT: external ear and nose normal, oropharynx normal Neck: trachea midline, no thyromegaly Respiratory: Currently patient has normal respiratory effort and nonlabored breathing. Symmetrical chest wall movement. Right lung bustillos clear to auscultation, left lung is diminished at the base. No crackles or wheezes auscultated. Cardiovascular: Sinus tachycardia on monitor. S1-S2, no murmur. No JVD or edema. Normal capillary refill Gastrointestinal (Abdomen): normal bowel sounds, soft, nontender, no hepatosplenomegaly Musculoskeletal: no cyanosis or clubbing, extremities motor strength 5/5 Skin: no rashes, warm and dry Neurologic: PERRL, EOMI, accommodation nl, no face palsy, no dysarthria Psychiatric: Alert and oriented x3 Results & Data Results & Data ([facility]) Vital Signs (Past 12 Hours) Vital Signs Temp Pulse Pulse Resp BP BP BP 11/30/20 21:00 117 H 11/30/20 20:59 36.5 C 11/30/20 20:32 104/76 11/30/20 20:26 118 H 188/111 H 11/30/20 20:09 128/75 11/30/20 20:05 127 H 147/84 H 11/30/20 18:41 90 11/30/20 15:35 36.6 C 94 H 17 103/68 11/30/20 11:52 36.5 C 101 H 18 117/77 Pulse Ox 11/30/20 21:00 97 11/30/20 20:59 11/30/20 20:32 98 11/30/20 20:26 99 11/30/20 20:09 11/30/20 20:05 100 11/30/20 18:41 11/30/20 15:35 96 11/30/20 11:52 96 Coding Level of Care Code 73179 Inpt Consult Level 1 Diagnoses Admitted to intensive care unit Z78.9 Respiratory failure with hypoxia J96.91 Empyema lung J86.9 Pneumonia J18.9 Pulmonary embolism I26.99 Acute cor pulmonale presence: unspecified Chronicity: acute Pulmonary embolism type: unspecified DVT (deep venous thrombosis) I82.411 Affected thrombotic vein of extremity: femoral Chronicity: acute DVT location: lower extremity Laterality: right Chest pain R07.9 Chest pain type: unspecified Pleural effusion J90 (1) DVT (deep venous thrombosis) Affected thrombotic vein of extremity: femoral Chronicity: acute DVT location: lower extremity Laterality: right Qualified Code(s): I82.411 - Acute embolism and thrombosis of right femoral vein (2) Pulmonary embolism Acute cor pulmonale presence: unspecified Chronicity: acute Pulmonary embolism type: unspecified Qualified Code(s): I26.99 - Other pulmonary embolism without acute cor pulmonale (3) Chest pain Chest pain type: unspecified Qualified Code(s): R07.9 - Chest pain, unspecified
[2020-11-30] MEDS ORDERED: KETAMINE HCL INJ 50 MG/ML 10 ML VIAL ONE (21:40)
[2020-11-30 21:51] LABS: Albumin Level 2.6 gm/dl (3.4-5.0); BUN Creatinine Ratio 15.4 (10-20); Calcium 9.1 mg/dl (8.5-10.1); Creatinine Clr Calc Pharmacy 92.3 ml/min; Est GFR (African American) 96.4; Est GFR (Non-African American) 83.2; Potassium 3.8 mmol/L (3.5-5.1)
[2020-11-30 21:53] LABS: Albumin Globulin Ratio 0.6 (0.9-2); Bilirubin,Total 0.5 mg/dl (0.2-1); Globulin 4.6 gm/dl (2.5-4.0); Total Protein 7.2 gm/dl (6.4-8.2)
[2020-11-30] MEDS: fentaNYL citrate 100 MCG/2 ML VIAL IV SCH ×3 (22:00→22:15)
[2020-11-30] MEDS ORDERED: MIDAZOLAM HCL 1 MG/ML 2ML VIAL ONE ×2 (22:16→22:28)
--- NOTE | 2020-11-30 22:58 | Procedure Note ---
Procedure Note Date of Service November 30, 2020 Procedure Date: noted above Procedure: Thoracentesis with follow-up tube thoracostomy Pre-procedure Diagnosis: Sepsis, loculated pleural effusion Post-procedure Diagnosis: same as above: Empyema Prior to Procedure: Informed Consent: The risks, benefits, indications, potential complications, and alternatives were explained to the patient's and informed consent obtained. Attending Staff: Evangelist Monson DO Resident/Physician Bid Writer: Jaye SHEPARD Indications: The patient is a 30-year-old male with compressive atelectasis and loculated pleural effusion The identity of the patient was confirmed and a bedside time out was performed. Description of Procedure: Patient positioned, the left mid axillary line was prepped with chlorhexidine and draped in usual sterile fashion. 5 mL of 1% Lidocaine without epinephrine was used to anesthetize the area. Utilizing dynamic ultrasound guidance and with care to enter superior to the rib margin an 18-gauge needle was entered into the pleural space and serous sanguinous not clotting material was noted to drain. A guidewire was inserted, and the needle removed. 1/2 cm incision was made, serial dilators were used to enlarge the tract via Seldinger technique. There was significant difficulty in the last serial dilatation and the guidewire was noted to have bent. The above procedure was repeated twice more in an attempt to safely enter the chest cavity and each time the guidewire was bent precluding successful placement of a chest tube. At that time the decision was made to convert to a surgical chest tube, the incision was extended and curved Kellys were utilized to attempt to enter the chest cavity. Significant difficulty was encountered and it was felt the chest tube was in place and secured at 15 cm. Postprocedural chest x-ray confirmed that this was in the subcutaneous tissue. The tube was removed and further attempts were discontinued given the high risk for bleeding given con commitment heparin use for bilateral pulmonary emboli. Specimen: Approximately 50 mL's of serosanguineous fluid was sent to the lab for Gram stain, culture, cell count and additional chemistry analysis Complications: None Estimated blood loss: 5 mL Post procedure chest x-ray has been ordered. Coding CPT Codes Pulmonary/Thoracic - Pulmonary and Thoracic: 09626 Thoracentesis w/o imaging ([id number]) [facility] [place] Procedure Codes (Charges) Pulmonary/Thoracic Procedure 1: Pulmonary and Thoracic: 57985 Thoracentesis w/o imaging (Aborted procedure)
--- NOTE | 2020-11-30 22:59 | Post Anesthesia Assessment ---
Date of Service November 30, 2020 Post Sedation Assessment Vital Signs Temp Pulse Pulse Resp BP BP BP 12/01/20 11:22 97 H 112/80 12/01/20 10:22 97 H 120/74 12/01/20 10:09 117 H 12/01/20 09:22 104 H 15 121/72 12/01/20 08:22 114 H 20 119/73 12/01/20 08:14 38.3 C H 12/01/20 07:22 117 H 121/72 12/01/20 06:00 115 H 12/01/20 05:22 119 H 132/70 12/01/20 05:00 118 H 12/01/20 04:23 120 H 12/01/20 04:22 121 H 132/74 12/01/20 04:00 124 H 12/01/20 03:22 122 H 136/76 12/01/20 03:00 122 H 12/01/20 02:21 121 H 132/76 12/01/20 02:00 118 H 12/01/20 01:21 117 H 135/82 12/01/20 01:00 113 H 12/01/20 00:21 112 H 141/80 H 12/01/20 00:06 114 H 124/80 12/01/20 00:00 111 H 126/83 11/30/20 23:51 112 H 126/83 11/30/20 23:41 36.9 C 11/30/20 23:36 117 H 116/88 11/30/20 23:30 116 H 11/30/20 23:21 116 H 127/84 11/30/20 23:19 114 H 120/79 11/30/20 23:17 122 H 128/76 11/30/20 23:16 121 H 11/30/20 23:15 117 H 127/82 11/30/20 23:14 125 H 123/79 11/30/20 23:11 128/76 11/30/20 23:09 136/77 11/30/20 23:07 121/58 L 11/30/20 23:06 130 H 11/30/20 23:05 120 H 130/69 11/30/20 23:04 11/30/20 23:03 134 H 147/89 H 11/30/20 23:02 122 H 11/30/20 23:01 124 H 133/85 11/30/20 23:00 127 H 11/30/20 22:59 122 H 142/82 H 11/30/20 22:58 123 H 11/30/20 22:57 125 H 128/92 11/30/20 22:56 126 H 11/30/20 22:55 126 H 126/77 11/30/20 22:54 126 H 11/30/20 22:53 125 H 138/78 11/30/20 22:52 126 H 11/30/20 22:51 127 H 11/30/20 22:50 131 H 135/83 11/30/20 22:48 132 H 11/30/20 22:47 138 H 130/86 11/30/20 22:46 128 H 11/30/20 22:45 130 H 131/88 11/30/20 22:44 127 H 11/30/20 22:43 134 H 127/93 11/30/20 22:42 137 H 11/30/20 22:41 126 H 124/80 11/30/20 22:40 128 H 11/30/20 22:39 130 H 153/93 H 11/30/20 22:38 128 H 11/30/20 22:37 128 H 132/91 11/30/20 22:36 129 H 11/30/20 22:35 130 H 132/80 11/30/20 22:34 132 H 11/30/20 22:33 129 H 134/84 11/30/20 22:32 133 H 11/30/20 22:31 136 H 142/105 H 11/30/20 22:29 151 H 157/101 H 11/30/20 22:28 142 H 158/105 H 11/30/20 22:27 152 H 11/30/20 22:26 145 H 11/30/20 22:24 146 H 159/115 H 11/30/20 22:22 130 H 138/108 H 11/30/20 22:21 129 H 146/103 H 11/30/20 22:20 134 H 11/30/20 22:19 139 H 163/104 H 11/30/20 22:18 128 H 11/30/20 22:17 130 H 157/99 H 11/30/20 22:16 130 H 11/30/20 22:15 137 H 160/102 H 11/30/20 22:14 134 H 11/30/20 22:13 136 H 145/86 H 11/30/20 22:12 136 H 11/30/20 22:10 142 H 166/101 H 11/30/20 22:08 138 H 168/95 H 11/30/20 22:06 138 H 156/105 H 11/30/20 22:04 141 H 166/109 H 11/30/20 22:02 149 H 169/97 H 11/30/20 22:00 148 H 11/30/20 21:58 149 H 161/100 H 11/30/20 21:56 129 H 150/91 H 11/30/20 21:54 135 H 148/86 H 11/30/20 21:52 138 H 148/95 H 11/30/20 21:50 134 H 145/93 H 11/30/20 21:48 134 H 138/97 11/30/20 21:46 111 H 130/74 11/30/20 21:44 116 H 126/77 11/30/20 21:42 109 H 131/73 11/30/20 21:40 111 H 134/72 11/30/20 21:39 115 H 113/72 11/30/20 21:36 106 H 115/73 11/30/20 21:32 114 H 119/74 11/30/20 21:00 117 H 11/30/20 20:59 36.5 C 11/30/20 20:56 121 H 11/30/20 20:32 104/76 11/30/20 20:26 118 H 188/111 H 11/30/20 20:09 128/75 11/30/20 20:05 127 H 147/84 H 11/30/20 18:41 90 11/30/20 15:35 36.6 C 94 H 17 103/68 Pulse Ox 12/01/20 11:22 95 12/01/20 10:22 96 12/01/20 10:09 12/01/20 09:22 95 12/01/20 08:22 94 12/01/20 08:14 12/01/20 07:22 93 12/01/20 06:00 95 12/01/20 05:22 95 12/01/20 05:00 94 12/01/20 04:23 93 12/01/20 04:22 93 12/01/20 04:00 92 12/01/20 03:22 94 12/01/20 03:00 92 12/01/20 02:21 93 12/01/20 02:00 92 12/01/20 01:21 95 12/01/20 01:00 97 12/01/20 00:21 98 12/01/20 00:06 97 12/01/20 00:00 98 11/30/20 23:51 98 11/30/20 23:41 11/30/20 23:36 98 11/30/20 23:30 96 11/30/20 23:21 95 11/30/20 23:19 94 11/30/20 23:17 95 11/30/20 23:16 93 11/30/20 23:15 95 11/30/20 23:14 95 11/30/20 23:11 96 11/30/20 23:09 97 11/30/20 23:07 96 11/30/20 23:06 97 11/30/20 23:05 96 11/30/20 23:04 97 11/30/20 23:03 97 11/30/20 23:02 96 11/30/20 23:01 96 11/30/20 23:00 96 11/30/20 22:59 96 11/30/20 22:58 96 11/30/20 22:57 96 11/30/20 22:56 96 11/30/20 22:55 96 11/30/20 22:54 96 11/30/20 22:53 95 11/30/20 22:52 94 11/30/20 22:51 94 11/30/20 22:50 98 11/30/20 22:48 96 11/30/20 22:47 95 11/30/20 22:46 95 11/30/20 22:45 96 11/30/20 22:44 97 11/30/20 22:43 98 11/30/20 22:42 97 11/30/20 22:41 96 11/30/20 22:40 96 11/30/20 22:39 95 11/30/20 22:38 96 11/30/20 22:37 95 11/30/20 22:36 95 11/30/20 22:35 96 11/30/20 22:34 98 11/30/20 22:33 98 11/30/20 22:32 98 11/30/20 22:31 98 11/30/20 22:29 96 11/30/20 22:28 98 11/30/20 22:27 74 L 11/30/20 22:26 99 11/30/20 22:24 90 11/30/20 22:22 99 11/30/20 22:21 98 11/30/20 22:20 98 11/30/20 22:19 90 11/30/20 22:18 98 11/30/20 22:17 93 11/30/20 22:16 95 11/30/20 22:15 98 11/30/20 22:14 96 11/30/20 22:13 91 11/30/20 22:12 96 11/30/20 22:10 98 11/30/20 22:08 99 11/30/20 22:06 100 11/30/20 22:04 100 11/30/20 22:02 97 11/30/20 22:00 84 L 11/30/20 21:58 97 11/30/20 21:56 99 11/30/20 21:54 97 11/30/20 21:52 95 11/30/20 21:50 100 11/30/20 21:48 98 11/30/20 21:46 100 11/30/20 21:44 99 11/30/20 21:42 100 11/30/20 21:40 99 11/30/20 21:39 99 11/30/20 21:36 100 11/30/20 21:32 97 11/30/20 21:00 97 11/30/20 20:59 11/30/20 20:56 11/30/20 20:32 98 11/30/20 20:26 99 11/30/20 20:09 11/30/20 20:05 100 11/30/20 18:41 11/30/20 15:35 96 Discharge Sedation Level of Care: Higher Level of Care (Patient remains in ICU level care) Post Sedation Plan On clinical assessment, the patient appears to have tolerated the sedation without complications. Patient is recovering as anticipated. Patient will continue to be monitored by nursing and may be discharged when sedation discharge criteria are met per below protocol. Upon Completions of procedure up to 15 minutes continue every 5 minute vital si gns and the P.A.R. score; then discharge to a Phase I or Fast Track to Phase II per the following guidelines: * Discharge Patient to appropriate Phase II area if PAR is 8 or greater or return to pre- procedure baseline. The post - procedure orders will be as directed. * If PAR score is less than 8 or not return to pre-procedure baseline then patient will follow Phase I monitoring till PAR is reached for Phase II. The Phase I may be done in procedure room or may call to secure a Phase I area. * If naloxone or flumazenil are used for reversal, hold in Phase I for continued monitoring from when last reversal dose was given for a minimum of 60 minutes or longer pending the nurse and/or physician discretion of patient condition before discharge to Phase II. Please call the Sedation Physician to re-evaluate and complete post-note for discharge to Phase II area. Do NOT discharge from procedure sedation or Phase 1 until post- sedation evaluation note is complete by procedure /sedation MD Sedation Discharge Instructions to be given to the patient at discharge to home. Supervising Physician Co-Signing Physician Notes Post procedure patient to remain in ICU level care, alert and oriented x3 following complex commands. Procedural start time: 2146 procedural end time 2240 Medications given: Fentanyl 200 mcg in 100 mg aliquots Ketamine: 100 mg in 25 mg aliquots Versed: 2 mg Patient remained arousable to verbal stimuli and able to follow commands during procedure. [facility] [place] Codes (Charges) Sedation/Anesthesia Procedure 1: Sedation/Anesthesia: 67346 Mod Sedation by the same physician;Init15 Min Child Age 5 & Up Total Sedation Time (minutes): 53 Procedure 2: Sedation/Anesthesia: 32096 Mod Sedation by the same physician; Ea [id number] Minutes (3 units) Total Sedation Time (minutes): 53
--- NOTE | 2020-11-30 22:59 | Procedure Note ---
Procedure Note Date of Service November 30, 2020 Coding
[2020-11-30] MEDS ORDERED: DORNASE ALFA 5 ML in SYRINGE 25 ML IPL SCH (23:00)
[2020-11-30 23:31] LABS: Albumin Pleural Fluid 1.9 g/dl; Amylase Pleural Fluid 30 U/L; Glucose Pleural Fluid 35 mg/dl; LDH Pleural Fluid 837 U/L; Total Protein Pleural Fluid 3.9 g/dl; Triglyceride Pleural Fluid 38 mg/dl
[2020-11-30 23:56] LABS: Hematocrit (blood only) 38.2 % (42-52); Hemoglobin 12.7 g/dL (14.0-18.0)
[2020-12-01 00:14] LABS: Appearance Pleural Fluid BLOODY; Basophils, Fluid 0 %; Color Pleural Fluid AMBER; Eosinophils, Fluid 0 %; Lymphocytes, Fluid 4 %; Mono,Macrophage,Mesothelial 3 %; Neutrophils, Fluid 93 %; RBC Pleural Fluid (A) 34000 /uL; Source Pleural Fluid LEFT LUNG; WBC Pleural Fluid (A) 13442 /uL
[2020-12-01] MEDS: ACETAMINOPHEN 325 MG TAB PO SCH ×4 (00:18→13:07)
[2020-12-01] MEDS: NORMOSOL-R 1,000 ML IV SCH ×3 (00:53→15:42)
[2020-12-01] MEDS: CEFEPIME 2,000 MG in SYRINGE 0 ML IV SCH ×2 (02:08→11:48)
[2020-12-01] MEDS: KETOROLAC TROMETHAMINE 15 MG/ML VIAL IV SCH (03:05)
[2020-12-01] MEDS: MoRPHine SULFATE 4 MG/ML 1 ML CARP\\VIAL IV PRN ×2 (03:20→05:05)
[2020-12-01 04:47] LABS: Hemoglobin 12.4 g/dL (14.0-18.0); Mean Corpuscular Hemoglobin 28.4 pg (25-34); Mean Corpuscular Hgb Conc 33.5 g/dL (32-36); Mean Corpuscular Volume 84.9 fL (80-100); Mean Platelet Volume 8.4 fL (7.4-10.4); Platelet Count 210 K/uL (130-400); RDW Coefficient of Variation 12.6 % (11.5-14.5); RDW Standard Deviation 38.7 fL (36.4-46.3); Red Blood Count 4.36 M/uL (4.7-6.1); White Blood Count 26.64 K/uL (4.8-10.8)
[2020-12-01 04:56] LABS: Partial Thromboplastin Ratio 1.6; Partial Thromboplastin Time 42.2 Seconds (21.0-31.0)
[2020-12-01 05:06] LABS: Albumin Level 2.5 gm/dl (3.4-5.0); BUN Creatinine Ratio 15.3 (10-20); Basophils # (auto) 0.01 K/uL (0-0.2); Calcium 8.6 mg/dl (8.5-10.1); Creatinine Clr Calc Pharmacy 101.9 ml/min; Dohle Bodies 1+; Eosinophils # (auto) 0.01 K/uL (0-0.5); Est GFR (African American) 108.6; Est GFR (Non-African American) 93.7; Immature Granulocytes # (auto) 0.16 K/uL (0.00-0.02); Immature Granulocytes % (auto) 0.6 %; Lymphocytes # (auto) 0.63 K/uL (1.2-3.4); Lymphocytes % (auto) 2.4 %; Monocytes # (auto) 1.64 K/uL (0.11-0.59); Monocytes % (auto) 6.2 %; Neutrophils # (auto) 24.19 K/uL (1.4-6.5); Neutrophils % (auto) 90.8 %; Potassium 4.4 mmol/L (3.5-5.1)
[2020-12-01 05:12] LABS: Albumin Globulin Ratio 0.5 (0.9-2); Bilirubin,Total 0.5 mg/dl (0.2-1); Globulin 4.6 gm/dl (2.5-4.0); Phosphorus 1.9 mg/dl (2.5-4.9); Total Protein 7.1 gm/dl (6.4-8.2)
--- NOTE | 2020-12-01 07:04 | XRay Report ---
XR chest 1V portable CLINICAL HISTORY: post chest tube COMPARISON STUDY: 11/30/2020 FINDINGS: The heart is borderline enlarged. There is a moderate left pleural effusion with associated left mid and lower lung zone atelectasis/consolidation. There is a left-sided chest tube which appea rs coiled within the soft tissues of the left chest wall. No pneumothorax is visualized.[Prominent ma rkings the right lung base are likely atelectatic IMPRESSION: 1. Increasing left pleural effusion with associated left lung atelectasis/consolidation 2. Interval placement of a left-sided chest tube which appears coiled within the soft tissues of the left lateral chest wall. 3. No pneumothorax identified ACT 112: Negative or not required by law. Electronically signed by: Anton Rodriguez M.D. 12/01/2020 7:03 AM
[2020-12-01] MEDS ORDERED: NALOXONE HCL 0.4 MG/1 ML VIAL/CARP IV PRN (08:05)
[2020-12-01] MEDS ORDERED: HYDROmorphone INJ 1 MG/ML SYRINGE IV STA (08:06)
[2020-12-01] MEDS ORDERED: HYDROmorphone INJ 1 MG/ML SYRINGE ONE (08:08)
--- NOTE | 2020-12-01 08:12 | XRay Report ---
XR chest 1V portable CLINICAL HISTORY: hypoxia, effusion COMPARISON STUDY: 11/30/2020 FINDINGS: The cardiac and mediastinal contours remain stable. There is persistent moderate left pleur al effusion with associated left lower lung zone atelectasis/consolidation. There is a small amount o f gas within the left chest wall. The malpositioned left-sided chest tube has been removed.[ IMPRESSION: 1. Interval removal of the malpositioned left-sided chest tube 2. Moderate left pleural effusion with associated left lower lobe atelectasis/consolidation ACT 112: Negative or not required by law. Electronically signed by: Anton Rodriguez M.D. 12/01/2020 8:11 AM
[2020-12-01] MEDS ORDERED: SODIUM CHLORIDE 0.9% 1000ML 1,000 ML IV SCH (08:30)
[2020-12-01] MEDS ORDERED: HYDROmorphone PCA 30 MG/30 ML IV PRN (08:30)
[2020-12-01] MEDS ORDERED: CEFEPIME 2,000 MG in SYRINGE 0 ML IV SCH (09:00)
[2020-12-01] MEDS ORDERED: HYDROmorphone INJ 0.5 MG/0.5 ML SYR IV STA ×2 (09:09→15:12)
--- NOTE | 2020-12-01 09:23 | Critical Care Progress Note ---
Date of Service December 01, 2020 Assessment & Plan (1) Pulmonary embolism: Reason Critically Ill: 30-year-old male admitted with PEs presents to the ICU with worsening hypoxia and respiratory distress with worsening left effusion on 11/30/2020. Neuro - Pain control: Morphine, Toradol -As needed Zofran for nausea Cardiac - Sinus tach, continuous monitoring on telemetry - Hemodynamically stable without use of vasopressors - No evidence of right heart strain on CT, troponin negative - EKG with ST depression anterior leads is likely attributed to hypoxic episode Respiratory - Acute hypoxic respiratory failure - patient with evolving large exudative effusion likely infectious and secondary to empyema vs. 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 - Cefepime transitioned to Unasyn today, as Pseudomonal coverage likely not needed - transfer to [facility] for evaluation by cardiothoracic surgery - continuous monitoring on ET CO2 and oxygen sats GI - no acute concerns at this time RENAL/LYTES - Renal function normal and electrolytes within normal limits - Lactic acidosis likely secondary to presumed pulmonary infection - No anion gap on BMP or metabolic acidosis demonstrated on ABG - Continue with IV fluid resuscitation and treat underlying cause, trend - no acute concerns at this time ENDO - No history of diabetes or thyroid disease - ICU hyperglycemic protocol HEME - H&H stable, monitor with routine CBCs ID - Sepsis - patient with fevers, WBC, pro Jorge L, and lactic acidosis - Likely pulmonary source as patient has evolving left pleural effusion with imaging and thoracentesis consistent with empyema vs. exudative parapneumonic effusion - Nasal MRSA negative - COVID-19 negative on admission - Cefepime transitioned to Unasyn today, as Pseudomonal coverage likely not needed LINES/IV ACCESS - Peripheral IVs intact CODE STATUS: full code Admission and Anticipated Discharge Date Admission Date: November 28, 2020 Supervising Physician Co-Signing Physician Notes Dr. Dueñas was resident physician during care of patient. I separately evaluated patient for martinez portions of the history and the exam. I was present during the critical portion of medical decision making, and I discussed the case with the resident. I generally agree with the findings and plan. Discussed with [facility] for transfer for VATS, will proceed to [facility] started Dilaudid FIELD BROOMER for pain control. Change from cefepime to Unasyn for anaerobic coverage, patient likely does not need pseudomonal coverage. No organisms seen on pleural fluid Gram stain. Saturating well on 4 L nasal cannula. Subjective Patient admitted for bilateral subsegmental PEs with left pleural effusion - admitted to the ICU yesterday evening for worsening hypoxia/respiratory distress. Chest tube placement attempted in the ICU but unsuccessful - however diagnostic thoracentesis was performed and showed exudative parapneumonic effusion. This morning the patient reports feeling weak Results & Data Results & Data (MN) Vital Signs (Past 12 Hours) Vital Signs Temp Pulse BP Pulse Ox 12/01/20 08:14 38.3 C H 12/01/20 06:00 115 H 95 12/01/20 05:22 119 H 132/70 95 12/01/20 05:00 118 H 94 12/01/20 04:23 120 H 93 12/01/20 04:22 121 H 132/74 93 12/01/20 04:00 124 H 92 12/01/20 03:22 122 H 136/76 94 12/01/20 03:00 122 H 92 12/01/20 02:21 121 H 132/76 93 12/01/20 02:00 118 H 92 12/01/20 01:21 117 H 135/82 95 12/01/20 01:00 113 H 97 12/01/20 00:21 112 H 141/80 H 98 12/01/20 00:06 114 H 124/80 97 12/01/20 00:00 111 H 126/83 98 11/30/20 23:51 112 H 126/83 98 11/30/20 23:41 36.9 C 11/30/20 23:36 117 H 116/88 98 11/30/20 23:30 116 H 96 11/30/20 23:21 116 H 127/84 95 11/30/20 23:19 114 H 120/79 94 11/30/20 23:17 122 H 128/76 95 11/30/20 23:16 121 H 93 11/30/20 23:15 117 H 127/82 95 11/30/20 23:14 125 H 123/79 95 11/30/20 23:11 128/76 96 11/30/20 23:09 136/77 97 11/30/20 23:07 121/58 L 96 11/30/20 23:06 130 H 97 11/30/20 23:05 120 H 130/69 96 11/30/20 23:04 97 11/30/20 23:03 134 H 147/89 H 97 11/30/20 23:02 122 H 96 11/30/20 23:01 124 H 133/85 96 11/30/20 23:00 127 H 96 11/30/20 22:59 122 H 142/82 H 96 11/30/20 22:58 123 H 96 11/30/20 22:57 125 H 128/92 96 11/30/20 22:56 126 H 96 11/30/20 22:55 126 H 126/77 96 11/30/20 22:54 126 H 96 11/30/20 22:53 125 H 138/78 95 11/30/20 22:52 126 H 94 11/30/20 22:51 127 H 94 11/30/20 22:50 131 H 135/83 98 11/30/20 22:48 132 H 96 11/30/20 22:47 138 H 130/86 95 11/30/20 22:46 128 H 95 11/30/20 22:45 130 H 131/88 96 11/30/20 22:44 127 H 97 11/30/20 22:43 134 H 127/93 98 11/30/20 22:42 137 H 97 11/30/20 22:41 126 H 124/80 96 11/30/20 22:40 128 H 96 11/30/20 22:39 130 H 153/93 H 95 11/30/20 22:38 128 H 96 11/30/20 22:37 128 H 132/91 95 11/30/20 22:36 129 H 95 11/30/20 22:35 130 H 132/80 96 11/30/20 22:34 132 H 98 11/30/20 22:33 129 H 134/84 98 11/30/20 22:32 133 H 98 11/30/20 22:31 136 H 142/105 H 98 11/30/20 22:29 151 H 157/101 H 96 11/30/20 22:28 142 H 158/105 H 98 11/30/20 22:27 152 H 74 L 11/30/20 22:26 145 H 99 11/30/20 22:24 146 H 159/115 H 90 11/30/20 22:22 130 H 138/108 H 99 11/30/20 22:21 129 H 146/103 H 98 11/30/20 22:20 134 H 98 11/30/20 22:19 139 H 163/104 H 90 11/30/20 22:18 128 H 98 11/30/20 22:17 130 H 157/99 H 93 11/30/20 22:16 130 H 95 11/30/20 22:15 137 H 160/102 H 98 11/30/20 22:14 134 H 96 11/30/20 22:13 136 H 145/86 H 91 11/30/20 22:12 136 H 96 11/30/20 22:10 142 H 166/101 H 98 11/30/20 22:08 138 H 168/95 H 99 11/30/20 22:06 138 H 156/105 H 100 11/30/20 22:04 141 H 166/109 H 100 11/30/20 22:02 149 H 169/97 H 97 11/30/20 22:00 148 H 84 L 11/30/20 21:58 149 H 161/100 H 97 11/30/20 21:56 129 H 150/91 H 99 11/30/20 21:54 135 H 148/86 H 97 11/30/20 21:52 138 H 148/95 H 95 11/30/20 21:50 134 H 145/93 H 100 11/30/20 21:48 134 H 138/97 98 11/30/20 21:46 111 H 130/74 100 11/30/20 21:44 116 H 126/77 99 11/30/20 21:42 109 H 131/73 100 11/30/20 21:40 111 H 134/72 99 11/30/20 21:39 115 H 113/72 99 11/30/20 21:36 106 H 115/73 100 11/30/20 21:32 114 H 119/74 97 Resident Activity Tracking Resident Involvement: Resident Care Provided Care Provided: Adult Hospital Medicine (1) Pulmonary embolism Acute cor pulmonale presence: unspecified Chronicity: acute Pulmonary embolism type: unspecified Qualified Code(s): I26.99 - Other pulmonary embolism without acute cor pulmonale
--- NOTE | 2020-12-01 09:34 | Billing Data ---
Date of Service December 01, 2020 Coding Level of Care Code 56172 Subseq Hosp Care Lvl 3
--- NOTE | 2020-12-01 10:17 | Discharge Summary ---
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 The patient comes in today for worsening of left rib and side pain and making it harder to breathe. 5 days ago the patient experienced hot flashes of warmth all over, associated with some light headedness and dizziness so he went to lay down, the pain on his left chest started a couple of days ago, but has gotten significantly worse today. The patient denies any leg pain or trauma or swelling of his legs and has not had this occur before. In the evaluation in the ER the patient had a CTA of the chest abdomen and pelvis performed where it was noted he has segmental and subsegmental pulmonary embolism in right upper, right middle, right lower, and left lower lobe pulmonary arteries. The left pulmonary embolism is associated with small left pleural effusion with basilar consolidation. He is also noted to have a right common femoral vein thrombosis which does not appear to extend in to the pelvis. The patient pain remains on the left side of his chest and left rib cage border, with significant splinting and guarding. The patient does have a significant family history of blood clots in his father who has had multiple pulmonary embolisms including saddle PE requiring mechanical ventilation with DVT requiring a filter at one time, that has since been removed. His father is on assisted anticoagulation per report and per Tonio his father's lab work was never shown to identify the reason. Tonio has one child son at home. Admission Exam Per Admitting Provider PHYSICAL EXAM: General: awake, alert, no apparent distress Head: Normocephalic, atraumatic ENT: PERRL, EOMI, no pharyngeal exudate, mucous membranes moist Neuro: AAO x 3, speech clear and appropriate, strength intact bilaterally 5/5, sensation intact and equal all extremities and dermatomes, no pronator drift Chest: equal rise and fall of the chest, no accessory muscle use, splinting of the left chest, decreased in bases secondary to hypoventilation, on room air, Cardiac: Regular rate and rhythm, telemetry reviewed, skin warm dry, cap refill <3 seconds, peripheral pulses +2 no JVD, no murmur, no edema GI: NABS x 4 quadrants, soft, nontender to palpation, no rebound, guarding secondary to LUQ rib pain, but not tender in the abdomen : Spontaneously voiding, no pain, no CVA tenderness, Extremities: Normal inspection, no peripheral edema or erythema, calfs nontender to palpation Psych: Normal mood and affect Skin: no rash or erythema Principal Diagnosis PE, empyema Discharge Exam Constitutional well developed - somewhat ill appearing, in pain, diaphoretic Eyes PERRL, conjunctivae normal, anicteric sclerae ENMT external ear and nose normal, oropharynx normal Neck normal visual inspection Respiratory - decreased breath sounds on the left, no crackles or wheeze appreciated Cardiovascular tachy, regular rhythm Chest (Breasts) Additional Comments: tender to palpation on the left with bandage on the left flank Gastrointestinal (Abdomen) normal bowel sounds, soft, nontender, no hepatosplenomegaly Skin no rashes, warm and dry Discharge Data Allergies Allergy/AdvReac Type Severity Reaction Status Date / Time No Known Allergies Allergy Unknown Verified 04/05/19 21:52 Consultations 11/28/20 10:33 ED Decision to Admit Stat 11/30/20 21:30 Consult Subject Scientific Research Stat 12/01/20 09:08 Burn CD for patient Stat Consult Health Information Management Stat Ordered Studies 11/28/20 09:33 CT abd pelvis IV con only Stat CT angio chest PE protocol Stat 11/28/20 10:18 US venous doppler LE BI Stat 11/30/20 19:35 CT angio chest PE protocol Stat 11/30/20 20:53 US point of care ultrasound Routine Hospital Course (1) Pulmonary embolism: 30-year-old male admitted with PEs who developed quickly worsening left side effusion on imaging concerning for empyema and was transferred to [facility] for evaluation by CT surgery. Pain control: with LACQUER COATER for pain prior to transfer Sinus tach, hemodynamically stable prior to discharge No evidence of right heart strain on CT, troponin negative EKG with ST depression anterior leads is likely attributed to hypoxic episode Hypoxic respiratory failure-patient with evolving large exudative effusion likely infectious and secondary to empyema vs. parapneumonic effusion, also undergoing treatment for segmental and subsegmental PEs -No evidence of new PEs or evolution of existing bilateral subsegmental and segmental PEs on the repeat CTA chest -Troponin remains negative and no evidence of heart strain on imaging, remains hemodynamically stable -Continued on heparin drip prior to transfer -genetic/immunology work-up pending although did show elevated homocysteine level -Large effusion demonstrated on repeat CT consistent with empyema likely secondary to loculation -Continue antibiotics, see septic management below -Chest tube for drainage was attempted but unsuccessful placement prior to transfer -Pleural fluid studies were able to be collected and and cultures pending -Patient's respiratory status stable with 3 L Oxymask prior to transfer Creatinine electrolytes within normal limits Lactic acidosislikely secondary to presumed pulmonary infection, improved prior to transfer H&H stable prior to transfer Sepsis patient with fevers, WBC, pro Jorge L, and lactic acidosis -Likely pulmonary source as patient has evolving left pleural effusion with imaging consistent with empyema vs. parapneumonic effusion -UA unremarkable, blood cultures pending -Pleural fluid studies and cultures pending. pH resulted at 7.08 consistent with infectious etiology -Nasal MRSA negative -COVID-19 negative on admission -Continued cefepime prior to transfer, concern for HIV given rapid decline with infection - patient consented to testing, but holding off on obtaining lab due to inability to follow up on results prior to transfer DVT -noted on CT abdomen pelvis in the right common femoral vein -No sonographic evidence of DVT in the right or left lower extremity on venous Doppler study Total Time Total Time Spent Total Time Spent (In Minutes): <30 Discharge Plan Discharge Items Patient Disposition: Transfer Acute Care Hospital Reason For Visit: PE Discharge Diagnosis: PE Condition on Discharge: Fair Activity: Per Instructions section Non-emergency contact: Primary Care Provider Call non-emergency contact if: your symptoms worsen Follow-up/Referrals: PCP,NO [Primary Care Provider] - Diet: Regular Addtl Attending Provider Instructions: 30-year-old male admitted with PEs who developed worsening hypoxia and respiratory distress with worsening left side effusion on imaging. Neuro - Pain control: Morphine, Toradol -As needed Zofran for nausea Cardiac - Sinus tach, continuous monitoring on telemetry Hemodynamically stable without use of vasopressors No evidence of right heart strain on CT, troponin negative EKG with ST depression anterior leads is likely attributed to hypoxic episode Respiratory - Hypoxic respiratory failure-patient with evolving large exudative effusion likely infectious and secondary to empyema vs. parapneumonic effusion, also undergoing treatment for segmental and subsegmental PEs -No evidence of new PEs or evolution of existing bilateral subsegmental and segmental PEs on the repeat CTA chest -Troponin remains negative and no evidence of heart strain on imaging, remains hemodynamically stable -Continue heparin drip -Family history of clotting disorder on father's side, genetic/immunology work-up pending (elevated homocysteine level) -Large effusion demonstrated on repeat CT consistent with empyema likely secondary to loculation -Continue antibiotics, see septic management below -Chest tube for drainage was attempted but unsuccessful placement -Pleural fluid studies were able to be collected and and cultures pending -Patient's respiratory status currently stable with 3 L Oxymask - transfer to [facility] for evaluation by cardiothoracic surgery -continuous monitoring on ET CO2 and oxygen sats -Patient's respiratory distress and hypoxia appear to be improved with adequate pain control, most likely inspiratory pain contributing to hypoxia/resp distress GI - no acute complaint RENAL/LYTES - Creatinine electrolytes within normal limits Lactic acidosislikely secondary to presumed pulmonary infection -No anion gap on BMP or metabolic acidosis demonstrated on ABG -Continue with IV fluid resuscitation and treat underlying cause, trend - Strict I's and O ENDO - No history of diabetes or thyroid disease ICU hyperglycemic protocol HEME - H&H stable, monitor with routine CBCs ID - Sepsispatient with fevers, WBC, pro Jorge L, and lactic acidosis -Likely pulmonary source as patient has evolving left pleural effusion with imaging consistent with empyema vs. parapneumonic effusion -UA unremarkable, blood cultures pending -Pleural fluid studies and cultures pending. pH resulted at 7.08 consistent with infectious etiology -Nasal MRSA negative -COVID-19 negative on admission -Continue cefepime concern for HIV given rapid decline with infection - patient consented to testing, but holding off on obtaining lab due to inability to follow up on results LINES/IV ACCESS - Peripheral IVs DVT -noted on CT abdomen pelvis in the right common femoral vein -No sonographic evidence of DVT in the right or left lower extremity on venous Doppler study - SCDs, continue heparin drip Current medications include: Heparin drip Tylenol, Lidocaine patch, and Hydromorphone LACQUER COATER for pain Cefepime 2g Q8H Pending Studies at Discharge: No Stand-Alone Forms: My [facility] [place] Sk[place] Items Patient informed of condition?: Yes DNR: No Discharge Level of Care: Other Communicable Disease: No Discharge Prognosis: Stable Lines: Peripheral IV Urinary Catheter: No Medications and DC Order Prescriptions: Discontinued acetaminophen [Tylenol Extra Strength] 500 mg Tablet 1,000 mg PO BID PRN (Reason: Pain) RF: 0 ibuprofen 200 mg Tablet 800 mg PO BID PRN (Reason: Pain) RF: 0 Discharge Orders: Discharge Order (Routine); Ordered 12/01/20 Ordered By: Konstantin Koroma Admission Data Admit Date/Time: 11/28/20 10:56 Attending Provider: Ashutosh Lim Admit Provider: Radhika Leyva Primary Care Provider: PCP,NO Other Providers: Pepe Rutherford ; Radhika Leyva ; Ming Monson Other Interventions: Discharge Summary Assessment (RN) Last Done: 12/01/20 14:59 Supervising Physician Co-Signing Physician Notes I personally examined the patient and verified all martinez points of history and exam, discussed case, and agree with decision making with Dr Koroma worse pain, imaging noted. 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 Pneumonia secondary to pulmonary infarctfairly rapidly appears to have developed a rather significant left lower lobe pneumonia, which then itself quickly developed into what appears concerning for empyema. transfer for thoracic to eval re ?VATS --> but also d/w pt should check HIV (he consents, but i did not order here since transfer was imminent and i did not want labs pending here at discharge be harder to track down at receiving facility --> would ask this be ordered on arrival) and would continue to look into ?plausibity of animal-associated pathogen? VATS cultures may be of help Severe pleuritic paincontinue multimodal pain control Otherwise as above, for transfer Resident Activity Tracking Resident Involvement: Resident Care Provided Care Provided: Adult Hospital Medicine CBC Results Results Complete Blood Count Results: RBC 4.36 M/uL (4.7-6.1) L 12/01/20 WBC 26.64 K/uL (4.8-10.8) H 12/01/20 Hgb 12.4 g/dL (14.0-18.0) L 12/01/20 Hct 37.0 % (42-52) L 12/01/20 Plt Count 210 K/uL (130-400) 12/01/20 Chemistry (BMP) Results BMP Results: Sodium 133 mmol/L (136-145) L 12/01/20 Potassium 4.4 mmol/L (3.5-5.1) 12/01/20 Chloride 101 mmol/L (98-107) 12/01/20 BUN 16 mg/dl (7-18) 12/01/20 Creatinine 1.06 mg/dl (0.6-1.4) 12/01/20 Glucose 111 mg/dl (70-99) H 12/01/20
[2020-12-01] MEDS: DOCUSATE SODIUM 100 MG CAP PO SCH (10:21)
[2020-12-01 11:28] LABS: Partial Thromboplastin Ratio 1.7; Partial Thromboplastin Time 44.7 Seconds (21.0-31.0)
[2020-12-01] MEDS: HEPARIN SODIUM/DEXTROSE 25,000 UNITS/500 ML BAG IV SCH ×3 (11:50→13:12)
[2020-12-01] MEDS ORDERED: AMPICILLIN/SULBACTAM SOD 3,000 MG in 0.9 % SODIUM CHLORIDE 100 ML IV SCH (12:00)
[2020-12-01] MEDS: LIDOCAINE 5% 1 PATCH TD SCH (13:06)
[2020-12-01] MEDS ORDERED: HYDROmorphone INJ 0.5 MG/0.5 ML SYR ONE (15:14)
--- NOTE | 2020-12-01 16:31 | Billing Data ---
Date of Service December 01, 2020 Coding Level of Care Code D/C Day Management <30 mins
--- NOTE | 2020-12-02 05:32 | Electrocardiogram Report ---
Test Reason : Blood Pressure : / mmHG Vent. Rate : 126 BPM Atrial Rate : 126 BPM P-R Int : 152 ms QRS Dur : 064 ms QT Int : 284 ms P-R-T Axes : 043 015 -14 degrees QTc Int : 411 ms Poor data quality, interpretation may be adversely affected Sinus tachycardia Nonspecific T wave abnormality Abnormal ECG When compared with ECG of 28-NOV-2020 08:58, Nonspecific T wave abnormality is now Present in Anterior leads Confirmed by Orlando Alvarez ([id number]) on 12/02/2020 5:31:56 AM Referred By: REFERRED SELF Confirmed By:Orlando Alvarez
--- NOTE | 2020-12-02 05:43 | Electrocardiogram Report ---
Test Reason : Blood Pressure : / mmHG Vent. Rate : 125 BPM Atrial Rate : 125 BPM P-R Int : 136 ms QRS Dur : 068 ms QT Int : 276 ms P-R-T Axes : 028 009 -18 degrees QTc Int : 398 ms Sinus tachycardia Otherwise normal ECG When compared with ECG of 30-NOV-2020 18:40, Nonspecific T wave abnormality is no longer Present in Anterior leads Confirmed by Orlando Alvarez ([id number]) on 12/02/2020 5:43:18 AM Referred By: REFERRED SELF Confirmed By:Orlando Alvarez
[2020-12-03 07:17] LABS: Anti Cardiolipin Ab IgG <14 GPL; Anti Cardiolipin Ab IgM <12 MPL; Anti-Thrombin III Activity 118 % normal (80-135); B2 Glycoprotein IgG <9 SGU (<=20); B2 Glycoprotein IgM <9 SMU (<=20); PTT LA Screen 28 sec (<=40); Protein S Functional(Activity) 90 % (70-150)
== END 2020-12-01 15:47 | disposition short-term general hospital (02) | DRG 186 ==
LOC: ED 08:42 → 2S 10:56 → SUATTDRO 10:56 → 2S 11:22 → 1E 11-30 20:27